=== PATIENT | female | born 1960 | race Caucasian/White ===

== ENCOUNTER 2024-07-07 13:00 | Outpatient (AMB) | payer MEDICARE, SELFPAY ==
--- NOTE | 2024-07-07 13:10 | MHC.PC.OV ---
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 Care Intake Note: New patient visit Director Non Profit Required: No Allergies Sulfa (Sulfonamide Antibiotics) Allergy (Mild, Verified 07/07/24 13:14) mouth swelling Tobacco use date assessed: 07/07/24 Fall risk assessment: No Falls in past year Last assessed Fall Risk: 07/07/24 Dental Screening Dental Screen Date: 07/07/24 Did you have a dental visit in the last 12 months?: Yes Was dental information given to patient?: Patient has dentist HPI HPI Comments History of Present Illness Details The patient is a 64 year old female with a past medical history of CAD, hyperlipidemia, GERD, OA, FREDDY presenting for follow up. Transfer from [facility] CV: Metoprolol, repatha. Follows with Dr Duran-upcoming visit. There was evidence of CAD per stress echo. Intolerant of crestor, pravastatin, lipitor. She is exercising multiple times per week and eating a low calorie diet but is frustrated by weight gain and inability to use it. She does have mild FREDDY diagnosed in 2021 OA: right shoulder, right hip, low back pain. [facility] Colonoscopy was 2023 Mammo scheduled for september Follows with supervisor brine-Dr Wall-sees in August ROS see HPI PHYSICAL EXAM: GENERAL: Alert and oriented x 3. NAD EYES: EOMI. Anicteric. HENT: Moist mucous membranes. No scleral icterus. No cervical lymphadenopathy. LUNGS: Clear to auscultation bilaterally. CARDIOVASCULAR: Regular rate and rhythm. No murmur. No JVD. ABDOMEN: Soft, non-tender +bs EXTREMITIES: No edema. Non-tender. SKIN: No rashes or lesions. Warm. NEUROLOGIC: No focal neurological deficits. CN II-XII grossly intact PSYCHIATRIC: Cooperative. 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 1. Little interest or pleasure in doing things: not at all 2. Feeling down, depressed, or hopeless: not at all 3. Trouble falling or staying asleep, or sleeping too much: several days 4. Feeling tired or having little energy: several days 5. Poor appetite or overeating: several days 6. Feeling bad about yourself - or that you are a failure or have let yourself or your family down: not at all 7. Trouble concentrating on things, such as reading the newspaper or watching television: several days 8. Moving or speaking so slowly that other people could have noticed. Or the opposite - being so fidgety or restless that you have been moving around a lot more than usual: not at all 9. Thoughts that you would be better off or of hurting yourself in some way: not at all Total score: 4 Depression Screening Interpretation: Negative Depression Screening Done: Yes 66960 - PHQ-9 Billing: Yes Source: Developed by Drs. Eric Garcia, Luz Maria Azar, Alcon Winchester and colleagues, with an educational aly from [employer]. Thrive Questionnaire Date Thrive assessed: 07/02/24 I am a: Patient What is your living situation today?: I have a steady place to live Within the past 12 months, did the food you bought not last and you didn't have the money to get more?: Never true Within the past 12 months, did you worry whether your food would run out before you got money to buy more?: Never true Do you have trouble paying for medicines?: No Do you have trouble getting transportation to medical appointments?: No Do you have trouble paying your heating and electricity bill?: No Do you have trouble taking care of your child, family member or friend?: No Do you have trouble with day-to-day activities such as bathing, preparing meals, shopping, managing finances, etc.?: No Are you currently unemployed and looking for a job?: No Are you interested in more education?: No Please select the resources that you would like help with: None Currently or been in a relationship where the following occur: No concerns reported THRIVE Score: 0 AUDIT C Alcohol Use Questionnaire (AUDIT-C) 1. How often do you have a drink containing alcohol?: 2-3 times a week 2. How many drinks containing alcohol do you have on a typical day when you are drinking?: 3 or 4 3. How often do you have six or more drinks on one occasion?: Less than monthly Total Score: 5 XOCHITL-7 AMB Questionnaire XOCHITL-7 Feeling nervous, anxious, or on edge: 0 = Not at all Not being able to stop or control worryin = Not at all Worrying too much about different things: 0 = Not at all Trouble relaxin = Not at all Being so restless that it is hard to sit still: 0 = Not at all Becoming easily annoyed or irritable: 0 = Not at all Feeling afraid as if something awful might happen: 0 = Not at all Total XOCHITL-7 score (0-4 normal; 5-9 mild; 10-14 moderate; 15-21 severe): 0 Source: Developed by Drs. Eric Garcia, Luz Maria Azar, Alcon Winchester and colleagues, with an educational aly from [employer]. Physical exam (Primary Care) PHQ-9: PHQ-9 Score PHQ-9: Total score 4 07/07/24 13:13 Depression Screening Interpretation: Negative Thrive Assessment: Date of Thrive Assessment Date Thrive assessed 07/02/24 07/07/24 13:13 Currently or been in a relationship where the following occur: No concerns reported Coding Level of Care Code Est Pt Level 4 (91255) Complex EM visit Add On G2211 Diagnoses Coronary artery disease without angina pectoris, unspecified vessel or lesion type, unspecified whether [place] or transplanted heart I25.10 Coronary Disease-Associated Artery/Lesion type: unspecified vessel or lesion type [place] vs. transplanted heart: unspecified whether [place] or transplanted heart Associated angina: without angina Primary hypertension I10 Hypertension type: primary hypertension FREDDY (obstructive sleep apnea) G47.33 Overweight E66.3 Additional Codes PHQ-9 - 85113 - PHQ-9 Billing: Yes ([id number]) Assessment & Plan Assessment & Plan (1) CAD (coronary artery disease): Code(s): I25.10 - Atherosclerotic heart disease of [place] coronary artery without angina pectoris Category: Medical Qualifiers: Coronary Disease-Associated Artery/Lesion type: unspecified vessel or lesion type [place] vs. transplanted heart: unspecified whether [place] or transplanted heart Associated angina: without angina Qualified Code(s): I25.10 - Atherosclerotic heart disease of [place] coronary artery without angina pectoris (2) Hypertension: Code(s): I10 - Essential (primary) hypertension Category: Medical Qualifiers: Hypertension type: primary hypertension Qualified Code(s): I10 - Essential (primary) hypertension (3) FREDDY (obstructive sleep apnea): Code(s): G47.33 - Obstructive sleep apnea (adult) (pediatric) Category: Medical (4) Overweight: Code(s): E66.3 - Overweight Category: Medical Plan 64 year old to reestablish care Interval history reviewed Due for colonoscopy in 2023-referral placed Labs ordered and printed-she will be going to [facility] Weight gain, overweight, FREDDY, hld, CAD-GLP ordered Orders: Orders Comprehensive Met. Panel Today I25.10 - Atherosclerotic heart disease of [place] coronary artery without angina pectoris, Z13.0 - Encounter for screening for diseases of the blood and blood-forming organs and certain disorders involving the immune mechanism, Z13.228 - Encounter for screening for other metabolic disorders TSH reflex Free T4 Today I25.10 - Atherosclerotic heart disease of [place] coronary artery without angina pectoris, Z13.0 - Encounter for screening for diseases of the blood and blood-forming organs and certain disorders involving the immune mechanism, Z13.228 - Encounter for screening for other metabolic disorders Complete Blood Count Auto Diff Today I25.10 - Atherosclerotic heart disease of [place] coronary artery without angina pectoris, Z13.0 - Encounter for screening for diseases of the blood and blood-forming organs and certain disorders involving the immune mechanism, Z13.228 - Encounter for screening for other metabolic disorders Hemoglobin A1c Today I25.10 - Atherosclerotic heart disease of [place] coronary artery without angina pectoris, Z13.0 - Encounter for screening for diseases of the blood and blood-forming organs and certain disorders involving the immune mechanism, Z13.228 - Encounter for screening for other metabolic disorders Referrals Gastroenterology Referral I25.10 - Atherosclerotic heart disease of [place] coronary artery without angina pectoris, Z12.11 - Encounter for screening for malignant neoplasm of colon, Z86.79 - Personal history of other diseases of the circulatory system Medications: New lorazepam 1 mg PO DAILY PRN 30 tabs 1RF anxiety Zepbound (tirzepatide (weight loss)) for 4 weeks 2.5 mg (0.5 mL) subcut QWEEK 2 mL 1RF NS E66.3 - Overweight, G47.33 - Obstructive sleep apnea (adult) (pediatric), I10 - Essential (primary) hypertension, I25.10 - Atherosclerotic heart disease of [place] coronary artery without angina pectoris ondansetron HCl may pay out of pocket 4 mg PO Q8H PRN 30 tabs 0RF nausea and vomiting
[2024-07-07 13:19] VITALS: BP 120/84; PULSE 59; RESP 14; O2SAT 95; BMI 28.5
--- OUTSIDE RECORDS SUMMARY | 2024-07-07 14:05 | XMS_ITS | Patient Health Record ---
Author Organization [facility] Address [address] [place] [address] Care Team Providers Care Medical Technologist Microbiology Name Role Phone THONY DORADO MD Primary Care Provider Zonia Thomas [phone] Allergies Allergen (clinical drug ingredient) Drug/Non Drug Allergy documented on EMR Reaction Allergy Type Onset Date Status Substance with sulfonamide structure and antibacterial mechanism of action (substance) SULFA (uncoded) SWELLING OF LIPS Allergy Active Results Component Value Reference Range Notes PDF Report Reviewed date:09/10/2023 08:04:57 AM Interpretation: Performing Lab:[facility], [address] [place] [address], Phone - [phone], Director - MDMoore Notes/Report: No. of containers..01 ThinPrep Vial Other..............Post Menopausal Dates / Results....03/05/18 NIL, Neg HPV Clinical Information:Vaginal/Cervical, LMP: Men o [id number] No Culture 30 Plus Reviewed date:09/10/2023 08:05:51 AM Interpretation: Performing Lab:[facility], [address] [place] [address], Phone - [phone], Director - MDMoore Notes/Report: Clinical Information:Vaginal/Cervical, LMP: Men o [id number] Dates / Results....03/05/18 NIL, Neg HPV Other..............Post Menopausal No. of containers..01 ThinPrep Vial DIAGNOSIS: EPITHELIAL CELL ABNORMALITY. ATYPICAL SQUAMOUS CELLS OF UNDETERMINED SIGNIFICANCE (ASC-US). Specimen adequacy: Satisfact ory for evaluation. No endocervical component is identified. Clinician provided ICD10: Z0 1.419 Performed by: Finesse Allan , Can Carrier (ASCP) Electronically signed by: Shira Hutchinson MD, Pathologist . . Pathologist provided ICD10: R87.610 Note: The Pap smear is a screening test designed to aid in the detection of premalignant and malignant conditions of the uterine cervix. It is not a diagnostic procedure and should not be used as the sole means of detecting cervical cancer. Both false-positive and false-negative reports do occur. . Test Methodology: This liquid based ThinPrep(R) pap test was screened with the use of an image guided system. HPV Aptima Negative Negative This nucleic acid amplification test detects fourteen high-risk HPV types (16,18,31,33,35,39,45,51,52,56, 58,59,66,68) without differentiation. HPV Genotype Reflex Criteria not met, HPV Genotype not performed. Reason For Referral No Information Medications Medication SIG (Take, Route, Frequency, Duration) Notes Start Date End Date Status Repatha 140 MG/ML Subcutaneous for 28 Days Active Metoprolol Succinate ER 25 MG Oral for 90 Days Active Aspirin Adult Low Dose 81 MG 1 tablet Orally Once a day for 30 day(s) 09/03/2023 Active Estradiol 10 MCG 1 _insert Vaginal TH RICE A WEEK for 90 days 09/03/2023 Active Immunizations Vaccine Route Administration Date Status Comme nts Td (adult) preservative free Unknown 03/05/2018 Adminis tered Social History Tobacco Use: Social History Observation Description Date Details (start date - stop date) Former Smoker NA - NA Tobacco use other than smoking: Question Answer Notes Are you an other tobacco user? No AUDIT-C (Standard) Question Answer Notes Did you have a drink contain ing alcohol in the past year? Yes How often did you have six o r more drinks on one occasion in the past year? Less than monthly (1 point) How many drinks did you have on a typical day when you were drinking in the past year? 1 or 2 drinks (0 point) How often did you have a dri nk containing alcohol in the past year? Daily or almost daily (4 points) Points 5 Interpretation Positive Tobacco Control (Standard) Question Answer Notes Tobacco use: Former smoker How long has it been since you last smoked? Grea ter than 10 years Problems Problem Type SNOMED Code ICD Code Onset Dates Problem Status W/U Status Risk Notes Problem Postmenopausal atrophic vaginitis (97310215) Postmenopausal atrophic vaginitis (N95.2) Active confirmed Problem Disorder of breast (67043000) Disorder of breast, unspecified (N64.9) Active confirmed Problem Menopause (412856184) Menopausal and female climacteric states (N95.1) Active confirmed Problem Postmenopausal atrophic vaginitis (62032946) Postmenopausal atrophic vaginitis (627.3) Active confirmed Diag Problem Gynecological examination normal (734803312004929) Routine gynecological examination (V72.31) Active confirmed Problem Screening for malignant neoplasm of colon (797833054) Special screening for malignant neoplasms, colon (V76.51) Active confirmed Major Vital Signs Temperature 97.4 degrees Fahrenheit 09/03/2023 Blood pressure diastolic 80 mm Hg 09/03/2023 Height 66 in 09/03/2023 Blood pressure systolic 112 mm Hg 09/03/2023 Weight 169 lbs 09/03/2023 BMI 27.27 kg/m2 09/03/2023 Encounters Encounter Location Date Provider Diagnosis [address] [place] [address] 09/03/2023 Zonia Wall Encounter for gynecological examination (general) (routine) with abnormal findings Z01.411 ; Encounter for screening mammogram for malignant neoplasm of breast Z12.31 ; Encounter for screening for osteoporosis Z13.820 ; Postmenopausal atrophic vaginitis N95.2 and Menopausal and female climacteric states N95.1 Assessments Encounter Date Diagnosis (ICD Code) Assessment Notes Treatment Notes Treatment Clinical Notes Section Notes 09/03/2023 Encounter for gynecological examination (general) (routine) with abnormal findings (ICD-10 - Z01.411) PAP TEST WITH HPV TYPING WAS OBTAINED. 09/03/2023 Encounter for screening mammogram for malignant neoplasm of breast (ICD-10 - Z12.31) REGULAR MAMMOGRAMS AND SBE'S WERE RECOMMENDED. 09/03/2023 Encounter for screening for osteoporosis (ICD-10 - Z13.820) BONE DENSITY WAS ORDERED. 09/03/2023 Postmenopausal atrophic vaginitis (ICD-10 - N95.2) DISCUSSED FINDINGS, DX AND TX OPTIONS. DISCUSSED BENEFITS AND RISKS OF INTRAVAGINAL ESTROGEN. PAT HAS NO CONTRAINDICATIONS AND ACCEPTS RISKS. RX AND INSTRUCTIONS FOR ESTRADIOL 10MCG TABS WERE GIVEN. ADVISED LUBRICANTS LIKE ALOE CADABRA. 09/03/2023 Menopausal and female climacteric states (ICD-10 - N95.1) DISCUSSED MENOPAUSE AND SYMPTOMS ASSOCIATED WITH THIS INCLUDING LOSS OF LIBIDO, INSOMNIA, HOT FLASHES. DISCUSSED NEW MEDICATION FOR HOT FLASHES, VEOZAH. BOOKLET WAS GIVEN, ITS BENEFITS AND RISKS WERE DISCUSSED. NEED FOR LIVER FUNCTION TESTS PRIOR TO AND AT 3, 6 AND 9 MONTHS AFTER STARTING THE MEDICATION WAS ALSO DISCUSSED. PAT WILL THINK ABOUT THIS OPTION. . Plan Of Treatment Pending Test Test Name Order Date Ultrasound : Breast, right 04/04/2023 Pap IG, Ct, rfx HPV all pth 04/13/2014 MAMMOGRAM, SCREENING 04/13/2014 MAMMOGRAM, SCREENING 09/03/2023 DIAGNOSTIC MAMMOGRAM, LEFT BREAST 2021 BONE DENSITY 09/03/2023 MM Digital Mammo Screening 09/03/2023 Gretel Uni Diag Digital Rt 04/04/2023 Left Breast Ultrasound Diagnostic 2021 Next Appt Details Provider Name:Zonia Ashely parker, 09/08/2024 08:20:00 AM, [address], [address], [place], [address], Insurance Providers Payer Name Payer Address Payer Phone Subscriber Number Group Number Insured Name Patient Relationship to Insured Coverage Start Date Coverage End Date MEDICARE [address] [place], [place] [id number] JOSÉ ANTONIO HUI Self - patient is the insured MEDEX [address] [place] [address] [phone] [id number] JOSÉ ANTONIO HUI Self - patient is the insured Medical (General) History Medical History History ICD Code Menopausal and female climacteric states N95.1 Postmenopausal atrophic vaginitis N95.2 Disorder of breast, unspecified N64.9 Hormone replacement therapy Z79.890 Other signs and symptoms in breast N64.5 9 Palpitations R00.2 Surgical History Surgery Date(Month/Year) Colonoscopy Dialation & Curettage Right Shoulder Surgery Tonsillectomy/Adenoidectomy [place] Teeth Extraction Hospitalization History Reason Date(Month/Year) See Surgical Hx 2 Vaginal Deliveries
--- OUTSIDE RECORDS SUMMARY | 2024-07-07 14:05 | XMS_ITS | Clinical Summary ---
Author Organization [facility] it Address [address] [place] [address] Care Team Providers Care Dietitian Helper Name Role Phone Sandra Dodd MD Primary Care Provider [phone] Allergies Active Allergy Reactions Criticality Noted Date Comments Aspartame Nausea And Vomiting 12/24/2008 Sulfa (Sulfonamide Antibiotics) Swelling High 04/11/2005 swelling of mouth anf lips Medications aspirin 81 mg EC tablet Take 1 Tablet by mouth daily. 2 Active azelastine (ASTELIN) 137 mcg (0.1 %) nasal spray daily as needed. 9 Active cholecalciferol (VITAMIN D-3) 125 mcg (5,000 unit) capsule Take by mouth daily. Active evolocumab (Repatha SureClick) 140 mg/mL pen injector injection Inject 140 mg into the skin every 14 days. 4 Active ibuprofen (ADVIL,MOTRIN) 200 mg tablet 1 TABLET EVERY 4 TO 6 HOURS NEEDED Active LORazepam (ATIVAN) 0.5 mg tablet Take 1 tablet by mouth 2 times daily as needed for Anxiety. 1 Active omega-3 acid ethyl esters (LOVAZA) 1 gram capsule Take 1 Capsule by mouth daily. Active TURMERIC ORAL Take 1,000 mg by mouth daily. Active ascorbate calcium-bioflavon oid (Araseli-C with Bioflavonoids) 500-200 mg tablet Take by mouth daily. Active coenzyme Q-10 200 mg capsule Take 1 Capsule by mouth daily. Active fexofenadine HCl (FEXOFENADINE ORAL) Active gluc/msm/C/boron/ manganes/prim (JOINT SUPPORT COMPLEX ORAL) Take by mouth daily. Active Repatha Syringe 140 mg/mL syringeIndication s:Coronary artery disease, unspecified vessel or lesion type, unspecified whether angina present, unspecified whether [place] or transplanted heart Inject 140 mg into the skin every 14 days. 6 mL 3 5 Active metoprolol succinate (TOPROL-XL) 25 mg 24 hr tablet TAKE 1 TABLET DAILY 90 tablet 3 5 Active Active Problems Problem Noted Date Diagnosed Date HLD (hyperlipidemia) 06/13/2021 Overview (02/28/2024): Last Assessment & Plan: The patient has a history of hyperlipidemia. She continues on Repatha given her history of significant myalgias and leg cramping on multiple statins in the past. She has been tolerating this well. Her last fasting lipid panel completed April 2023 showed significant improvement in her cholesterol levels. Her LDL was noted to be 72. She has been working on her diet and has been exercising. I have reviewed with the patient the importance of a heart healthy lifestyle which includes eating a low-fat low-salt diet, getting regular exercise, maintaining a healthy weight, not smoking, and following up with routine medical care. CAD (coronary artery disease) 06/13/2021 Overview (02/28/2024): Last Assessment & Plan: A stress echocardiogram was completed August 2019 which showed exercise-induced hypokinesis of the basal to mid inferior wall. The patient has presumed coronary artery disease given this abnormal stress echocardiogram. Medical therapy was advised. The patient is currently asymptomatic from a cardiac standpoint while on medical therapy with aspirin and metoprolol succinate. She denies exertional anginal symptoms. Sleep difficulties 01/15/2017 Gastroesophageal reflux disease 01/15/2017 Ectatic aorta (CMS/HCC V24) 01/15/2017 Overview (02/28/2024): Noted on CT 2015 3.8 cm dilated ascending aorta noted on CT 03/2017. Saw Vascular Dr. Fatimah Soto 04/2017 Pulmonary nodule 12/21/2016 Nonallergic rhinitis 12/12/2015 Tinnitus 12/24/2008 Recurrent sinus infections 12/24/2008 Immunizations Name Administration Dates Next Due Influenza trivalent, with pr eservative (Fluzone; Afluria) 6mo and older 11/19/2017,11/20/2016,11/30/2015,12/07,11/17/2013,12/15/2012,11/18/2009 Pneumococcal polysaccharide 23 valent (Pneumovax 23) 2yo and older 11/30/2015 Td, Unspecified 06/05/2002 Tdap Tetanus diptheria acell ular pertussis (Boostrix; Adacel) 7yo and older 02/02/2013 Zoster recombinant (Shingrix ) 19yo and older 10/19/2020 Surgical History Surgery Date Site/Laterality Comments COLONOSCOPY 2002 PROCEDURE: HISTORICAL COLONOSCOPY; COMMENT: nl 08/20 OTHER SURGICAL HISTORY 1999 Right PROCEDURE: CO CAPSULORRHAPHY GLENOHUMERAL JT PST W/WO BONE BLK; COMMENT: NEOS CERVICAL BIOPSY W/ LOOP ELEC TRODE EXCISION PROCEDURE: HISTORICAL CONE BIOPSY; COMMENT: in her 30s TONSILLECTOMY age 4 PROCEDURE: HISTORICAL TONSILLECTOMY; COMMENT: Adnoidectomy UPPER GASTROINTESTINAL ENDOSCOPY 2002 PROCEDURE: UPPER GI ENDOSCOPY/EXAM; COMMENT: Normal 08/20 OTHER SURGICAL HISTORY PROCEDURE: CO DILATION & CURETTAGE DX&/THER NONOBSTETRIC COLONOSCOPY 2013 PROCEDURE: CO COLONOSCOPY FLX DX W/COLLJ SPEC WHEN PFRMD; COMMENT: normal Medical History Medical History Date Comments Palpitations DX:Palpitations; COMMENT: mild PVC Mitral valve disorders(424.0) DX :Mitral valve disorders(424.0); COMMENT: Mild(CHART THINNED - NO ECHO IN CHART) Family History Medical History Relation Name Comments Pancreatic cancer Father Heart attack Paternal Grandfather Other: CAD Paternal Grandfather Other: KIDNEY STONES Paternal Grandfather Melanoma Sister 1 Relation Name Status Comments Brother 1 Alive Brother 2 Alive recovered ETOH Brother 3 Alive Daughter Alive Father (Age 64 YRS) PANCRE ATIC CA Maternal Grandfather heart d isease Mother Alive HTN,OSTEOPOROSI S Paternal Grandfather (Age 70'S) CAD/GA Paternal Grandmother (Age 97 YRS ) Sister 1 Alive 2 melanomas Sister 2 Alive Sister 3 Alive Son Alive Social History Tobacco Use Types Packs/Day Years Used Date Smoking Tobacco: Former Cigarettes Q uit: 02/19/1984 Smokeless Tobacco: Never Alcohol Use Standard Drinks/Week Comments Yes 50 (1 standard drink = 0.6 oz pu re alcohol) Comments Unknown Sex and Gender Information Value Date Recorded Sex Assigned at Not on file Legal Sex Female 12:28 PM EST Gender Identity Not on file Sexual Orientation Not on file Obstetrics History Last Filed Vital Signs Vital Sign Reading Time Taken Comments Blood Pressure 122/80 05/10/2023 7:41 AM EDT Sitting L Arm Pulse 65 05/10/2023 7:41 AM EDT Temperature - - Respiratory Rate - - Oxygen Saturation - - Inhaled Oxygen Concentration - - Weight 78.3 kg (172 lb 9.6 oz) 05/10/2023 7:41 AM EDT Height 165.1 cm (5' 5 ) 05/10/2023 7:41 AM EDT Body Mass Index 28.72 05/10/2023 7:41 AM EDT Plan of Treatment Upcoming Encounters Date Type Department Care Team (Late st Contact Info) Description 07/14/2024 8:20 AM EDT Office Visit [facility] [address] [place] [address] Roger-Chandrakant Macias MD [address] [place] [address] [address] [place] [address] 10/06/2024 11:10 AM EDT Appointment Radiology Department [address] [address] Health Maintenance Due Date Last Done Comments Pneumococcal Vaccine: 50+ Years (2 of 2 - PCV) 11/29/2016 11/30/2015 Zoster Vaccines (2 of 2) 12/14/2020 10/19/2020 Colorectal Cancer Screening: Colonoscopy 01/27/2022 Depression Screening 01/27/2022 Medicare Annual Wellness Visit 01/27/2022 Osteoporosis Screening (Bone Density Screening) 01/27/2022 Social Influencers of Health Screening 01/27/2022 Hypertension/CHF/CAD Annual BMP Blood Test 10/04/2022 10/04/2021 DTaP,Tdap,and Td Vaccines (3 - Td or Tdap) 02/02/2023 02/02/2013, 06/05/2002 Falls Risk Assessment 2023 COVID-19 Vaccine ( season) 2023 04/23/2020, 04/02/2020 Influenza Vaccine (Season Ended) 2024 11/19/2017, 11/20/2016, 11/30/2015, Additional history exists Breast Cancer Screening 04/28/2025 04/29/19 24, 04/03/2023, 04/02/2022, Additional history exists Cholesterol Screening (Lipid Panel) 10/04/2026 10/04/2021 RSV Immunization Adult Patients (1 - 1-dose 75+ series) 2033 Hepatitis C Screening Completed 11/16/2014 HIB Vaccines Aged Out No longer eligi ble based on patient's age to complete this topic HPV Vaccines Aged Out No longer eligi ble based on patient's age to complete this topic Hepatitis A Vaccines Aged Out No long er eligible based on patient's age to complete this topic Hepatitis B Vaccines Aged Out No long er eligible based on patient's age to complete this topic IPV Vaccines Aged Out No longer eligi ble based on patient's age to complete this topic MMR Vaccines Aged Out No longer eligi ble based on patient's age to complete this topic Meningococcal ACWY Vaccine Aged Out N o longer eligible based on patient's age to complete this topic Meningococcal B Vaccine Aged Out No l onger eligible based on patient's age to complete this topic RSV Immunization Patients Under 20 months Aged Out No longer eligible based on patient's age to complete this topic Varicella Vaccines Aged Out No longer eligible based on patient's age to complete this topic Procedures Procedure Name Priority Date/Time Associated Diagnosis Comments DIAGNOSTIC MAMMOGRAPHY WITH CAD UNILATERAL Routine 04/29/2023 9:32 AM EDT Other abnormal and inconclusive findings on diagnostic imaging of breast ANNUAL BMP BLOOD TEST Routine 10/04/2021 LIPID PANEL Routine 10/04/2021 HEPATITIS C SCREENING Routine 11/16/2014 from Last 3 Months or Most Recently Relevant to Health Maintenance Results * DIAGNOSTIC MAMMOGRAPHY WITH CAD UNILATERAL (04/29/2023 9:32 AM EDT) Anatomical Region Laterality Modality Mammography 04/04/2023 3:14 PM EST Narrative 04/29/2023 9:48 AM EDT This is a summary report. The complete report is available in the patient's medical record. If you cannot access the medical record, please contact the sending organization for a detailed fax or copy. Exam: Unilateral right digital diagnostic mammogram and right breast ultrasound. History: Call back Findings: Patient is recalled from a screening mammogram performed 04/03/2023 for additional imaging on the right. 90 ML and spot compression MLO and CC views were performed with tomosynthesis. The asymmetry in the upper breast does not persist on the additional views. ??No mass or architectural distortion is apparent. ??Parenchymal pattern is similar to prior exams. The asymmetry in the upper breast localizes to the outer breast on tomosynthesis. ??Targeted sonography subsequently performed in the upper outer quadrant without a solid or cystic lesion identified. Impression: No suspicious finding on callback imaging. ??Routine annual screening mammography recommended. BI-RADS 1-negative Procedure Note Jess To MD - 10/07/2023 This is a summary report. The complete report is available in thepatient's medical record. If you cannot access the medical record, pleasecontact the sending organization for a detailed fax or copy. Exam: Unilateral right digital diagnostic mammogram and right breastultrasound. History: Call back Findings: Patient is recalled from a screening mammogram performed 04/03/2023 foradditional imaging on the right. 90 ML and spot compression MLO and CC views were performed withtomosynthesis. The asymmetry in the upper breast does not persist on theadditional views. No mass or architectural distortion is apparent.Parenchymal pattern is similar to prior exams. The asymmetry in the upper breast localizes to the outer breast ontomosynthesis. Targeted sonography subsequently performed in the upperouter quadrant without a solid or cystic lesion identified. Impression: No suspicious finding on callback imaging. Routine annual screeningmammography recommended. BI-RADS 1-negative us Zonia Wall MD IMG BI PROCEDURES Final Re sult * Hm Annual BMP Blood Test (10/04/2021) Pathologist [facility] Annual BMP Blood Test abstracted Historical Provider HEALTH MAINTENANCE Final Result * (ABNORMAL) Lipid panel (10/04/2021) [facility] LDL/HDL Ratio 3 0 - 4 Triglycerides 119 0 - 150 mg/dL Cholesterol 226(A) 0 - 200 mg/dL HDL 75 >=40 mg/dL LDL Cholesterol 128(A) 0 - 100 mg/dL Blood Venous blood specimen / Unknown Historical Provider LAB BLOOD ORDERABLES Mary Kate l Result * Hepatitis C Screening (11/16/2014) [facility] Hepatitis C Screening abstracted [facility] Provider HEALTH MAINTENANCE Final Result from Last 3 Months or Most Recently Relevant to Health Maintenance Insurance [facility]ICARE [facility] Care Teams Dietitian Helper Relationship Specialty Start Date End Date Sandra Dodd MD [address] [place] [address] PCP - General Internal Medicine 06/29/24
== END 2024-07-07 13:51 | disposition home or self-care (01) ==
LOC: HO.HMCFM 13:01
PROVIDERS: PCP Internal Medicine; Visit Provider Internal Medicine
DX: I25.10 Atherosclerotic heart disease of native coronary artery without angina pectoris (principal); I10 Essential (primary) hypertension; G47.33 Obstructive sleep apnea (adult) (pediatric); E66.3 Overweight

== ENCOUNTER → 2024-07-07 13:00 | Outpatient (BNVA) | payer MEDICARE, SELFPAY | PROVIDERS: PCP Internal Medicine; Visit Provider Internal Medicine | DX: I25.10 Atherosclerotic heart disease of native coronary artery without angina pectoris (principal); I10 Essential (primary) hypertension; G47.33 Obstructive sleep apnea (adult) (pediatric); E66.3 Overweight; E78.5 Hyperlipidemia, unspecified; K21.9 Gastro-esophageal reflux disease without esophagitis; M19.011 Primary osteoarthritis, right shoulder; M16.11 Unilateral primary osteoarthritis, right hip; M54.50 Low back pain, unspecified; Z79.899 Other long term (current) drug therapy | CPT/HCPCS: 96127; 99212 ==

== ENCOUNTER 2024-09-08 11:11 | Outpatient (AMB) | payer MEDICARE, SELFPAY ==
--- NOTE | 2024-09-08 11:19 | MHC.OFFVIS ---
Vital Signs 09/08/24 11:21 Height 5 ft 5 in Weight 165 lb BMI 27.5 BP 140/80 H Blood Pressure Location Lt brachial Position Sitting Pulse 60 Pulse Oximetry (%) 98 Oxygen Delivery Method Room Air Intake Visit Reasons: colo screening Intake Note: Patient new consult for pre Colonoscopy screening. Patient denies any GI issues for today visit. Textile Broker Required: No Accompanied by: Self / Same As Patient Allergies Sulfa (Sulfonamide Antibiotics) Allergy (Mild, Verified 07/07/24 13:14) mouth swelling Medication List - Last Reconciled 09/08/24 by Zoe Marr CNP aspirin 81 mg PO DAILY bisacodyl 5 mg PO ONCE 1 day calcium carbonate 500 mg PO DAILY cetirizine (Zyrtec) 10 mg PO DAILY PRN [milagros c 1000 PO] evolocumab (Repatha Syringe) mg subcut fish oil-dha-epa PO DAILY [glucasamine with MSM PO] loratadine (Claritin) 10 mg PO DAILY lorazepam 1 mg PO DAILY PRN metoprolol succinate ER 25 mg PO DAILY ondansetron HCl 4 mg PO Q8H PRN polyethylene glycol 3350 (Miralax) 238 grams PO ONCE [probiotics PO] Zepbound (tirzepatide (weight loss)) 2.5 mg (0.5 mL) subcut QWEEK 4 weeks NS HPI HPI colo screening: Details: Patient is a 64-year-old female with PMH of hypertension, CAD, FREDDY and overweight. Referred by PCP for pre colonoscopy screening. This will be [address]oscopy. Her last was in 2013 through [facility] and reported as normal. The patient reports regular bowel movements and described occasional constipation or diarrhea, believed to be diet-related and manageable. No blood in stools, abdominal pain, nausea, or vomiting is reported. The patient mentions some stomach upset following the first dose of Zepbound last Saturday, which resolved within hours. The observed weight fluctuation from 171 lbs in June to the current weight of 165 lbs is attributed to working out and medication-related effects. Social hx: - Alcohol use (vodka lemonade) 2-3 times/week, typically on weekends. - Recreational use of THC-containing sleep gummies once a week. -former smoker, cessation 40 years ago - family hx as below -denies personal hx of CA -tolerated anesthesia in the past without difficulty. 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 Current occupational exposures/hazards: No Cognitive needs: No Hearing needs: Yes (bilateral hearing aid) Vision needs: Yes (glasses/contacts) Review of Systems Const Reports as per HPI ENT Reports as per HPI Card Reports as per HPI Resp Reports as per HPI GI Reports as per HPI Reports as per HPI Physical Exam Vital Signs: Last Vital Signs Pulse 60 09/08/24 11:21 BP 140/80 H 09/08/24 11:21 Pulse Ox 98 09/08/24 11:21 Oxygen Delivery Method Room Air 09/08/24 11:21 BMI result Body Mass Index 27.5 Const General: healthy appearing, no acute distress and well developed Nutritional Appearance: average body habitus Orientation/consciousness: patient oriented x3 HEENT Head: Yes normal to inspection, Yes normocephalic and Yes atraumatic Face and sinus: Yes normal facial exam Eyes General: appearance normal, both eyes and all related structures Neck Neck: Yes normal visual inspection Resp Effort & Inspection: normal respiratory effort, able to speak in complete sentences, no tracheal deviation and symmetric chest movement Cardio Jugular venous distension: no JVD Neuro General: patient oriented x3 Gait exam (Neuro): Normal gait present Psych Appearance: grossly normal Mental Status: mental status grossly normal Speech and movement: Normal speech and movement present Affect: normal affect Attitude: cooperative Thought process: Normal thought process present Thought content: Normal thought content present Insight: Good insight present (Psych) Judgement: Good judgement present (Psych) Assessment & Plan Assessment & Plan (1) Screening for colon cancer: Code(s): Z12.11 - Encounter for screening for malignant neoplasm of colon Category: Medical Plan: Due for routine colonoscopy screening. No alarm features. Medications: -prescriptions for laxative tablets and MiraLax sent to pharmacy; instructions for Gatorade purchase and clear liquid diet given. - understands weight loss medication and ASA will need to be held days prior to procedure. Nurse to review med holds per protocol. Patient educated on scheduling process, procedure preparation, including avoiding certain foods and ensuring clear liquid intake Advised on necessity for ride post-procedure due to sedation. (2) Overweight: Code(s): E66.3 - Overweight Category: Medical Plan: Weight loss attributed to increased activity and Zepbound; Zepbound known to cause GI side effects, including constipation. Medications: Continue Zepbound as prescribed, but hold 7 days prior to colonoscopy. Lifestyle Modifications: Emphasize high-fiber diet, adequate water intake, and regular exercise to counteract constipation risk from Zepbound. Monitor for persistent or severe GI symptoms. Follow-Up: Reassess bowel habits and weight at next PCP visit; monitor for adverse effects of Zepbound. Plan Follow-up after colonoscopy if warranted or sooner as needed Time: I spent a total of 20 minutes on the date of encounter which includes: Preparing to see the patient (reviewed previous documentation, test results and medical history) Performing a medically appropriate exam and/or evaluation Ordering medications, tests, and procedures Documenting clinical information in the health record Medications: New bisacodyl Take four tablets once for 1 day per colonoscopy instructions 5 mg PO ONCE 4 tabs 0RF 1 day polyethylene glycol 3350 (Miralax) per colonoscopy prep instructions 238 grams PO ONCE 238 grams 0RF Coding Level of Care Code New Pt New Pt Level 2 (94814) Patient Type New Diagnoses Screening for colon cancer Z12.11 Overweight E66.3
[2024-09-08 11:21] VITALS: BP 140/80; PULSE 60; O2SAT 98; BMI 27.5
--- OUTSIDE RECORDS SUMMARY | 2024-09-08 12:26 | XMS_ITS | Patient Health Record ---
Author Organization [facility] Address [address] [place] [address] Care Team Providers Care Binding Cutter Name Role Phone THONY DORADO MD Primary Care Provider Zonia Thomas [phone] Allergies Allergen (clinical drug ingredient) Drug/Non Drug Allergy documented on EMR Reaction Allergy Type Onset Date Status Substance with sulfonamide structure and antibacterial mechanism of action (substance) SULFA (uncoded) SWELLING OF LIPS Allergy Active Reason For Referral No Information Medications Medication SIG (Take, Route, Frequency, Duration) Notes Start Date End Date Status Estradiol 10 MCG 1 _insert Vaginal TH RICE A WEEK; Duration: 90 days 09/03/2023 Not-Taking Aspirin Adult Low Dose 81 MG 1 tablet Orally Once a day; Duration: 30 day(s) 09/03/2023 Active Metoprolol Succinate ER 25 MG Oral; Duration: 90 Days Acti ve Repatha 140 MG/ML Subcutaneous; Durati on: 28 Days Active Immunizations Vaccine Route Administration Date Status [...] Status Risk Notes Problem Postmenopausal atrophic vaginitis (71235812) Postmenopausal atrophic vaginitis (N95.2) Active confirmed Problem Disorder of breast (29752860) Disorder of breast, unspecified (N64.9) Active confirmed Problem Menopause (394290030) Menopausal and female climacteric states (N95.1) Active confirmed Problem Postmenopausal atrophic vaginitis (39999486) Postmenopausal atrophic vaginitis (627.3) Active confirmed Diag Problem Gynecological examination normal (400960953490531) Routine gynecological examination (V72.31) Active confirmed Problem Screening for malignant neoplasm of colon (760947029) Special screening for malignant neoplasms, colon (V76.51) Active confirmed Major Vital Signs Temperature 97.3 degrees Fahrenheit 09/08/2024 Blood pressure diastolic 82 mm Hg 09/08/2024 Height 66 in 09/08/2024 Blood pressure systolic 122 mm Hg 09/08/2024 Weight 165 lbs 09/08/2024 BMI 26.63 kg/m2 09/08/2024 Encounters Encounter Location Date Provider Diagnosis [address] [place] [address] 09/08/2024 Zonia Wall Encounter for gynecological examination (general) (routine) without abnormal findings Z01.419 ; Encounter for screening mammogram for malignant neoplasm of breast Z12.31 and Encounter for screening for osteoporosis Z13.820 Assessments Encounter Date Diagnosis (ICD Code) Assessment Notes Treatment Notes Treatment Clinical Notes Section Notes 09/08/2024 Encounter for gynecological examination (general) (routine) without abnormal findings (ICD-10 - Z01.419) NO PAP TEST, DUE IN 2026. 09/08/2024 Encounter for screening mammogram for malignant neoplasm of breast (ICD-10 - Z12.31) REGULAR MAMMOGRAMS AND SBE'S WERE RECOMMENDED. 09/08/2024 Encounter for screening for osteoporosis (ICD-10 - Z13.820) BONE DENSITY WAS ORDERED. ADVISED ADEQUATE CALCIUM AND VIT D. WEIGHT BEARING EXERCISES. Plan Of Treatment Pending Test Test Name Order Date Ultrasound : Breast, right 04/04/2023 Pap IG, Ct, rfx HPV all pth 04/13/2014 MAMMOGRAM, SCREENING 04/13/2014 MAMMOGRAM, SCREENING 09/03/2023 DIAGNOSTIC MAMMOGRAM, LEFT BREAST 2021 BONE DENSITY 09/08/2024 BONE DENSITY 09/03/2023 MM Digital Mammo Screening 09/03/2023 MM Digital Mammo Screening 09/08/2024 Gretel Uni Diag Digital Rt 04/04/2023 Left Breast Ultrasound Diagnostic 2021 Next Appt Details Provider Name:Zonia parker, 09/16/2025 08:20:00 AM, [address], [address], [place], [address], Insurance Providers Payer Name Payer Address Payer Phone Subscriber Number Group Number Insured Name Patient Relationship to Insured Coverage Start Date Coverage End Date MEDICARE [address] [place], [place] [id number] [phone] [id number] JOSÉ ANTONIO HUI Self - patient is the insured 4 MEDEX [address] [place] [address] [phone] [id number] JOSÉ ANTONIO HUI Self - patient is the insured 4 Medical (General) History Medical History History ICD Code Menopausal and female climacteric states N95.1 Postmenopausal atrophic vaginitis N95.2 Disorder of breast, unspecified N64.9 Hormone replacement therapy Z79.890 Other signs and symptoms in breast N64.5 9 Palpitations R00.2 Surgical History Surgery Date(Month/Year) Colonoscopy Dialation & Curettage Right Shoulder Surgery Tonsillectomy/Adenoidectomy [facility] Teeth Extraction Hospitalization History Reason Date(Month/Year) See Surgical Hx 2 Vaginal Deliveries
--- OUTSIDE RECORDS SUMMARY | 2024-09-08 12:26 | XMS_ITS | Clinical Summary ---
Author Organization [facility] [employer] Address [address] [place] [address] Phone Care Team Providers Care Plasterer Foreman Name Role Phone Sandra Dodd MD Primary Care Provider [phone] Allergies Active Allergy Reactions Criticality Noted Date Comments Aspartame Nausea And Vomiting 12/24/2008 Sulfa (Sulfonamide Antibiotics) Swelling High 04/11/2005 swelling of mouth anf lips Medications aspirin 81 mg EC tablet Take 1 Tablet by mouth daily. 06/13/2021 Active azelastine (ASTELIN) 137 mcg (0.1 %) nasal spray daily as needed. 03/24/2018 Active cholecalciferol (VITAMIN D-3) 125 mcg (5,000 unit) capsule Take by mouth daily. Active evolocumab (Repatha SureClick) 140 mg/mL pen injector injection Inject 140 mg into the skin every 14 days. 03/26/2023 Active ibuprofen (ADVIL,MOTRIN) 200 mg tablet 1 TABLET EVERY 4 TO 6 HOURS NEEDED Active LORazepam (ATIVAN) 0.5 mg tablet Take 1 tablet by mouth 2 times daily as needed for Anxiety. 10/18/2020 Active omega-3 acid ethyl esters (LOVAZA) 1 gram capsule Take 1 Capsule by mouth daily. Active ascorbate calcium-bioflav onoid (Araseli-C with Bioflavonoids) 500-200 mg tablet Take by mouth daily. Active coenzyme Q-10 200 mg capsule Take 1 Capsule by mouth daily. Active fexofenadine HCl (FEXOFENADINE ORAL) Active gluc/msm/C/boro n/manganes/prim (JOINT SUPPORT COMPLEX ORAL) Take by mouth daily. Active metoprolol succinate (TOPROL-XL) 25 mg 24 hr tablet TAKE 1 TABLET DAILY 90 tablet 3 04/13/2024 Active calcium carbonate 1,500 mg (600 mg elemental calcium) tablet Take 1 tablet (1,500 mg total) by mouth. Active Active Problems Problem Noted Date Diagnosed Date Abnormal EKG 07/14/2024 Assessment & Plan (07/14/2024 8:52 AM EDT): HLD (hyperlipidemia) 06/13/2021 Overview (02/28/2024): Last Assessment [...] and following up with routine medical care. Assessment & Plan (07/14/2024 8:52 AM EDT): The patient has a history of hyperlipidemia. The patient is currently on Repatha 140 mg subcutaneously every 2 weeks we will order a new lipid panel to evaluate the patient's current lipid control and determine if any adjustment are needed in the lipid lowering therapy. Orders: Lipid panel with reflex to direct LDL; Future Basic metabolic panel; Future Coronary artery disease invo lving shoalwater coronary artery of shoalwater heart with angina pectoris ([facility] V24) 06/13/2021 Overview (02/28/2024): Last Assessment & Plan: [...] metoprolol succinate. She denies exertional anginal symptoms. Assessment & Plan (07/14/2024 8:52 AM EDT): The patient has a history of presumed coronary artery disease on the basis of a prior abnormal stress echocardiogram. Specifically, the patient underwent a stress echocardiogram in August 2019 that showed a small area of ischemia in the basal to mid inferior wall. Given it was a small area of ischemia (low risk findings) the patient was treated with medical therapy by initiating aspirin, Toprol, and Repatha. Treatment plan is consistent with the [facility] chronic coronary artery disease guidelines. With this medical regimen, the patient has remained asymptomatic until now. However, on today's visit, the patient states that she feels a slight shortness of breath sensation when she goes up more than 4 flights of stairs. Interestingly, she does not feel any shortness of breath with 3 flights of stairs or less. Also, she does not feel any shortness of breath when she walks in the [place]. Of note, the patient does not have any symptoms of chest discomfort. She is compliant with her medical therapy with aspirin, Toprol, and Repatha. On today's visit, her EKG does show evidence of a nonspecific T wave abnormality in the inferolateral leads which is new when compared to her prior EKG from April 2023. Given the scenario, we will proceed with further evaluation of her underlying coronary artery disease. Will proceed with a cardiac CT scan to rule out any significant obstructive coronary artery disease or high risk coronary artery disease. Will also order an echocardiogram to rule out any underlying structural heart disease that may be contributing to her new EKG findings. The patient will continue her current medical therapy in the meantime. The patient was instructed to avoid any strenuous physical activities until her cardiac evaluation is complete. 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 Saw Vascular Dr. Fatimah Soto 04/2017 Encounters Date Type Department Care Team Description 08/14/2024 7:00 AM EDT Ancillary Procedure [facility] [address] [place] [address] Coronary artery disease involving shoalwater coronary artery of shoalwater heart with angina pectoris ([facility] V24) 07/22/2024 Telephone [facility] [address] [place] [address] Destiney Sutherland MD Appointment (Coronary CTA) 07/14/2024 8:20 AM EDT Office Visit [facility] [address] [place] [address] Destiney Sutherland MD Coronary artery disease involving shoalwater coronary artery of shoalwater heart with angina pectoris ([facility] V24) (Primary Dx); Pure hypercholesterolemia ; Abnormal EKG; Coronary artery disease, unspecified vessel or lesion type, unspecified whether angina present, unspecified whether shoalwater or transplanted heart 07/14/[address] [facility] [address] [facility] [address] [place] [address] Destiney Sutherland MD from Last 3 Months Immunizations Name Administration Dates Next Due Influenza [...] 08/20 OTHER SURGICAL HISTORY 1999 Right PROCEDURE: [place] CAPSULORRHAPHY GLENOHUMERAL JT PST W/WO BONE BLK; COMMENT: NEOS CERVICAL BIOPSY W/ LOOP ELEC TRODE EXCISION PROCEDURE: HISTORICAL CONE BIOPSY; COMMENT: in her 30s TONSILLECTOMY age 4 PROCEDURE: HISTORICAL TONSILLECTOMY; COMMENT: Adnoidectomy UPPER GASTROINTESTINAL ENDOSCOPY 2002 PROCEDURE: UPPER GI ENDOSCOPY/EXAM; COMMENT: Normal 08/20 OTHER SURGICAL HISTORY PROCEDURE: [place] DILATION & CURETTAGE DX&/THER NONOBSTETRIC COLONOSCOPY 2013 PROCEDURE: [place] COLONOSCOPY FLX DX W/COLLJ SPEC WHEN PFRMD; [...] Alive HTN,OSTEOPOROSI S Paternal Grandfather (Age 70'S) CAD/IA Paternal Grandmother (Age 97 YRS ) Sister 1 Alive 2 melanomas Sister 2 Alive Sister 3 Alive Son Alive Social History Tobacco Use Types Packs/Day Years Used Date Smoking Tobacco: Former Cigarettes Q uit: 02/19/1984 Smokeless Tobacco: Never Alcohol Use Standard Drinks/Week Comments Yes 50 (1 standard drink = 0.6 oz pu re alcohol) occ Comments Unknown Sex and Gender Information Value Date Recorded Sex Assigned at Not on file Legal Sex Female 12:28 PM EST Gender Identity Not on file Sexual Orientation Not on file Obstetrics History Last Filed Vital Signs Vital Sign Reading Time Taken Comments Blood Pressure 142/70 08/14/2024 7:40 AM EDT Pulse 57 07/14/2024 8:19 AM EDT Temperature - - Respiratory Rate - - Oxygen Saturation 99% 07/14/2024 8:19 AM EDT Inhaled Oxygen Concentration - - Weight 77.1 kg (170 lb) 08/14/2024 7:40 AM EDT Height 165.1 cm (5' 5 ) 08/14/2024 7:40 AM EDT Body Mass Index 28.29 08/14/2024 7:40 AM EDT Plan of Treatment Upcoming Encounters Date Type Department Care Team (Late st Contact Info) Description 10/06/2024 11:10 AM EDT Appointment Radiology Department [address] [phone] Health Maintenance Due Date Last Done Comments Pneumococcal Vaccine: 50+ Years (2 of 2 - PCV) 11/29/2016 11/30/2015 Colorectal Cancer Screening: Colonoscopy 01/27/2022 Medicare Annual Wellness Visit 01/27/2022 Osteoporosis Screening (Bone Density Screening) 01/27/2022 Social Influencers of Health Screening 01/27/2022 Falls Risk Assessment 2023 COVID-19 Vaccine ( season) 2023 07/22/2021, 02/27/2021, 04/23/2020, Additional history exists Depression Screening 02/19/2024 Influenza Vaccine (#1) 2024 , 11/22/2020, 11/18/2018, Additional history exists Breast Cancer Screening 04/28/2025 04/29/19 24, 04/03/2023, 04/02/2022, Additional history exists Hypertension/CHF/CAD Annual BMP Blood Test 07/14/2025 07/14/2024, 10/04/2021 Cholesterol Screening (Lipid Panel) 07/14/2029 07/14/2024, 10/04/2021 DTaP,Tdap,and Td Vaccines (5 - Td or Tdap) 07/24/2032 07/24/2022, 03/05/2018, 02/02/2013, Additional history exists RSV Immunization Adult Patients (1 - 1-dose 75+ series) 2033 Hepatitis C Screening Completed 11/16/2014 Zoster Vaccines Completed 04/20/2024, 10/19/2020 HIB Vaccines Aged Out No longer eligi [...] Procedure Name Priority Date/Time Associated Diagnosis Comments TRANSTHORACIC ECHOCARDIOGRAM (TTE) COMPLETE Routine 08/14/2024 7:42 AM EDT Coronary artery disease involving shoalwater coronary artery of shoalwater heart with angina pectoris ([facility] V24) BASIC METABOLIC PANEL Routine 07/14/2024 9:10 AM EDT Pure hypercholesterolemia LIPID PANEL WITH REFLEX TO DIRECT LDL Routine 07/14/2024 9:10 AM EDT Pure hypercholesterolemia ECG 12-LEAD Routine 07/14/2024 8:27 AM EDT Coronary artery disease, unspecified vessel or lesion type, unspecified whether angina present, unspecified whether shoalwater or transplanted heart DIAGNOSTIC MAMMOGRAPHY WITH CAD UNILATERAL Routine 04/29/2023 9:32 AM EDT Other abnormal and inconclusive findings on diagnostic imaging of breast HM HEPATITIS C SCREENING Routine 11/16/2014 from Last 3 Months or Most Recently Relevant to Health Maintenance Results * (ABNORMAL) TRANSTHORACIC ECHOCARDIOGRAM (TTE) COMPLETE (08/14/2024 7:42 AM EDT) Left Atrium Minor Cordova 5.5 cm CV PACS Left Atrium Major Cordova 5.7 cm CV PACS LA Area Sys (A2C) 20 cm2 CV PACS LA Area Sys (A4C) 18 cm2 CV PACS LA Volume (BP) 53 mL CV PACS RA Area 13.4 cm2 CV PACS RA 2D Volume 30 mL CV PACS AV Mean Gradient 3 mmHg CV PACS Ao VTI 28.4 cm CV PACS AV Peak Bruce 1.1 m/s CV PACS AV Peak Gradient 5 mmHg CV PACS AV Area Continuity Equation 2.2 cm2 CV PACS AV Area Peak Velocity 2.3 cm2 CV PACS Aortic Arch 2.8 cm CV PACS Ascending Aorta 3.6 cm CV PACS IVC Proximal 1.0 cm CV PACS IVSD 0.9 0.6 - 0.9 cm CV PACS LVIDD 4.6 3.8 - 5.2 cm CV PACS LVIDS 3.6(A) 2.2 - 3.5 cm CV PACS LVOT Diameter 2.1 cm CV PACS LVOT Mean Bruce 0.5 m/s CV PACS LVOT Mean Grad 1 mmHg CV PACS LVOT Peak VTI 18.0 cm CV PACS LVOT Peak Bruce 0.7 m/s CV PACS LVOT Peak Gradient 2 mmHg CV PACS LVPWD 0.8 0.6 - 0.9 cm CV PACS MV E' Tissue Velocity Lateral 7 cm/s CV PACS MV E' Tissue Velocity Septal 8 cm/s CV PACS LVOT Area 3.5 cm2 CV PACS LVOT Stroke Volume 62 mL CV PACS MV Deceleration Wilkin 2.5 m/s2 CV PACS E Wave Deceleration Time 257(A) 119 - 242 ms CV PACS MV PHT 75 ms CV PACS MV Peak A Bruce 0.77 m/s CV PACS MV Peak E Bruce 0.63 m/s CV PACS MV Area PHT 2.9 cm2 CV PACS PV Acceleration Time 111 ms CV PACS PV Acceleration Time 148 ms CV PACS PV Acceleration Time 130 ms CV PACS PV Peak Velocity 0.6 m/s CV PACS PV Peak Gradient 1 mmHg CV PACS RV Diastolic Basal Dimension 2.7 2.5 - 4.1 cm CV PACS TAPSE 18 mm CV PACS TR Peak Velocity 2.26 m/s CV PACS TR Peak Gradient 20 mmHg CV PACS E/E' Ratio Septal 8 CV PACS E/E' Ratio Averaged 8 CV PACS LVOT Stroke Index 34 mL/m2 CV PACS Relative Wall Thickness ratio 0.35 CV PACS LVOT:AV VTI Index 0.63 CV PACS FS 22 % CV PACS LV Mass 2D 128 g CV PACS Ascending Aorta Index 1.95 cm/m2 CV PACS LVOT flow 173 mL/s CV PACS RA 2D Volume Index 16 mL/m2 CV PACS MATTHEW Index (VTI) 1.19 cm2/m2 CV PACS MATTHEW Index (Pk Bruce) 1.24 cm2/m2 CV PACS LVIDD Index 2.49 cm/m2 CV PACS LVIDS Index 1.95 cm/m2 CV PACS AV Velocity Ratio 0.64 CV PACS E/A Ratio 0.8 CV PACS E/E' Ratio Lateral 9 CV PACS LA Volume Index (BP) 29 mL/m2 CV PACS LV Mass Index 2D 69 g/m2 CV PACS BSA 1.88 m2 CV PACS Right Ventricular Peak Systolic Pressure 23 mmHg CV PACS Est. RA Pressure 3 mmHg CV PACS Aortic Root 3.6 cm CV PACS Aortic Root Index 1.95 cm/m2 CV PACS Anatomical Region Laterality Modality Ultrasound Narrative 08/27/2024 2:18 PM EDT Left ventricle cavity size is normal. Left ventricular systolic function is in the normal range with an ejection fraction of 55-60%. No regional LV wall motion abnormalities noted. Right ventricle cavity is normal. Right ventricular systolic function is normal. Mitral Valve: There is mild regurgitation. Tricuspid Valve: There is mild regurgitation. The right ventricular systolic pressure is normal. The RVSP is estimated at 23 mmHg. Left Ventricle Left ventricle cavity size is normal. False tendon noted in the LV apex. Wall thickness is normal. Systolic function is normal with an ejection fraction of 55-60%. There are no regional LV wall motion abnormalities. There is no diastolic dysfunction. Right Ventricle Right ventricle cavity appears normal. Systolic function is normal. Left Atrium Left atrium cavity size is normal. Right Atrium Right atrium cavity is normal. IVC/SVC RA pressures is estimated to be 3 mmHg (IVC diameter <21 mm and decreases >50% during inspiration). Mitral Valve The leaflets are mildly thickened. There is annular calcification. There is mild regurgitation. There is no evidence of mitral valve stenosis. Tricuspid Valve Tricuspid valve structure is normal. There is mild regurgitation. There is no evidence of tricuspid valve stenosis. The right ventricular systolic pressure is normal. The RVSP is estimated at 23 mmHg. Aortic Valve The aortic valve is trileaflet. There is no regurgitation or stenosis. Pulmonic Valve Visualized portions of the pulmonic valve appear normal. No significant pulmonic valve regurgitation. There is no evidence of pulmonic valve stenosis. Ascending Aorta The aorta appears normal in size. Pericardium Pericardium appears normal. There is no pericardial effusion. Study Details Overall the study quality was technically difficult. Destiney Sutherland MD CV ECHO PROCEDURES Fin al Result * Lipid panel with reflex to direct LDL (07/14/2024 9:10 AM EDT) [facility] Signature Cholesterol 190 0 - 200 mg/dL LAB CHEMISTRY METHOD 07/14/2024 12:[address] [facility] Triglycerides 120 0 - 150 mg/dL LAB CHEMISTRY METHOD 07/14/2024 12:[address] [facility] HDL 80 >=40 mg/dL LAB CHEMISTRY METHOD 07/14/2024 12:[address] [facility] LDL Calculated 86 0 - 100 mg/dL LAB CHEMISTRY METHOD 07/14/2024 12:[address] [facility] VLDL Cholesterol Lei 24 mg/dL LAB CHEMISTRY METHOD 07/14/2024 12:06 PM [facility] Non HDL Chol. (LDL+VLDL) 110 <145 mg/dL LAB CHEMISTRY METHOD 07/14/2024 12:[address] [facility] Chol/HDL Ratio 2.4 0.0 - 4.4 LAB CHEMISTRY METHOD 07/14/2024 12:06 PM [facility] Blood Venous blood specimen / Unknown Venipuncture / Unknown 07/14/2024 9:10 AM EDT 07/14/2024 10:49 AM EDT Destiney Sutherland MD LAB BLOOD ORDERABLES F inal Result [facility] [address] [place] [address], * Basic metabolic panel (07/14/2024 9:10 AM EDT) Sodium 140 133 - 145 mmol/L LAB CHEMISTRY METHOD 07/14/2024 12:06 PM [facility] Potassium 3.9 3.5 - 5.5 mmol/L LAB CHEMISTRY METHOD 07/14/2024 12:06 PM [facility] Chloride 107 96 - 110 mmol/L LAB CHEMISTRY METHOD 07/14/2024 12:06 PM [facility] CO2 27 21 - 32 mmol/L LAB CHEMISTRY METHOD 07/14/2024 12:06 PM [facility] Anion Gap 6 3 - 11 LAB CHEMISTRY METHOD 07/14/2024 12:06 PM [facility] Glucose 91 70 - 100 mg/dL LAB CHEMISTRY METHOD 07/14/2024 12:06 PM [facility] BUN 13 5 - 25 mg/dL LAB CHEMISTRY METHOD 07/14/2024 12:06 PM [facility] Creatinine 0.72 0.50 - 1.10 mg/dL LAB CHEMISTRY METHOD 07/14/2024 12:06 PM [facility] eGFR 92 >=60 mL/min/1. 73m2 LAB CHEMISTRY METHOD 07/14/2024 12:06 PM [facility] Comment:Calculation based on the Chronic Kidney Disease Epidemiology Collaboration (CKD-EPI) equation refit without adjustment for race. BUN/Creatinine Ratio 18.1 LAB CHEMISTRY METHOD 07/14/2024 12:06 PM [facility] Calcium 9.8 8.5 - 10.5 mg/dL LAB CHEMISTRY METHOD 07/14/2024 12:06 PM [facility] Blood Venous blood specimen / Unknown Venipuncture / Unknown 07/14/2024 9:10 AM EDT 07/14/2024 10:49 AM EDT Destiney Sutherland MD LAB BLOOD ORDERABLES F inal Result [facility] [address] [place] [address], [place] [phone] * ECG 12 lead (07/14/2024 8:27 AM EDT) Ventricular Rate ECG 49 BPM GEMUSE Atrial Rate 49 BPM GEMUSE P-R Interval 146 ms GEMUSE QRS Duration 84 ms GEMUSE Q-T Interval 418 ms GEMUSE QTc 377 ms GEMUSE P Wave Cordova 59 degrees GEMUSE R Cordova -44 degrees GEMUSE T Cordova -48 degrees GEMUSE ECG Interpretation Sinus bradycardia Left axis deviation Nonspecific T wave abnormality Abnormal ECG No previous ECGs available Confirmed by DESTINEY SUTHERLAND ([id number]) on 07/14/2024 8:34:26 AM GEMUSE 07/14/2024 8:27 AM EDT 07/14/2024 8:34 AM EDT Destiney Sutherland MD ECG ORDERABLES Final Result Performing Organization Address [facility] Co de Phone Number GEMUSE * DIAGNOSTIC MAMMOGRAPHY WITH CAD UNILATERAL (04/29/2023 [...] does not persist on the additional views. No mass or architectural distortion is apparent. Parenchymal pattern is similar to prior exams. The asymmetry in the upper breast localizes to the outer breast on tomosynthesis. Targeted sonography subsequently performed in the upper outer quadrant without a solid or cystic lesion identified. Impression: No suspicious finding on callback imaging. Routine annual screening mammography recommended. BI-RADS 1-negative Procedure [...] imaging. Routine annual screeningmammography recommended. BI-RADS 1-negative Zonia Wall MD IMG BI PROCEDURES Final Re sult * Hepatitis C Screening (11/16/2014) Hepatitis C Screening abstracted Historical Provider HEALTH MAINTENANCE Final Result from Last 3 Months or Most Recently Relevant to Health Maintenance Insurance MEDICARE [facility] Care Teams Plasterer Foreman Relationship Specialty Start Date End Date Sandra Dodd MD [address] [place] [address] PCP - General Internal Medicine 06/29/24
== END 2024-09-08 11:44 | disposition home or self-care (01) ==
LOC: HO.HGI 11:12
PROVIDERS: PCP Internal Medicine; Visit Provider Nurse Practitioner Family
DX: Z01.818 Encounter for other preprocedural examination (principal); Z12.11 Encounter for screening for malignant neoplasm of colon; E66.3 Overweight; Z68.27 Body mass index [BMI] 27.0-27.9, adult
CPT/HCPCS: 99024

== ENCOUNTER → 2024-09-08 11:11 | Outpatient (BNVA) | payer MEDICARE, SELFPAY | PROVIDERS: PCP Internal Medicine; Visit Provider Nurse Practitioner Family | DX: Z01.818 Encounter for other preprocedural examination (principal); Z12.11 Encounter for screening for malignant neoplasm of colon; E66.3 Overweight | CPT/HCPCS: 99212 ==

== ENCOUNTER 2025-02-04 09:22 | Day surgery (SDC) | payer MEDICARE, SELFPAY ==
--- OUTSIDE RECORDS SUMMARY | 2025-01-07 02:20 | XMS_ITS | Encounter Summary ---
Author Organization [facility] Address [address] [place] [address] Care Team Providers Care Banking Services Clerk Name Role Phone Jelly Pinedo MD Primary Care Provider Un available Jelly Pinedo MD Primary Care Provider Un available Jelly Pinedo MD Unavailable Unavaila Chandrakant Trujillo MD Unavailable [phone] [facility], Pcp Primary Care Provider Sandra Granger MD Primary Care Provider Susan sanchez Encounter Details Date Type Department Care Team Description 02/24/2014 Cna Report Medical Records [address] [place] [id number] Lizett López MD Social History Tobacco Use Types Packs/Day Years Used Date Smoking Tobacco: Former Cigarettes 0.5 7 Q uit: 02/19/1984 Smokeless Tobacco: Never Alcohol Use Standard Drinks/Week Comments Yes 50 (1 standard drink = 0.6 oz pu re alcohol) 9 Beers per week Sex Assigned at Date Recorded Not on file Job Start Date Occupation Industry Not on file Not on file Not on file documented as of this encounter Plan of Treatment Not on file documented as of this encounter Visit Diagnoses Not on filedocumented in this encounter Care Teams Banking Services Clerk Relationship Specialty Start Date End Date Jelly Pinedo MD PCP - General 01/09/02 04/02/19 Jelly Pinedo MD PCP - General 04/03/19 11/23/21 [facility], Pcp [address] [place] [address] PCP - General Internal Medicine 11/24/21 04/09/22 Sandra Montalvo MD [address] [place] [address] [place] [address] PCP - General Internal Medicine 04/10/22 Jelly Pinedo MD 04/03/19 06/05/21 Chandrakant Duran MD [address] [place] [address] [place] [address] [employer] Cardiovascular Disease 06/06/21 documented as of this encounter
--- OUTSIDE RECORDS SUMMARY | 2025-01-07 02:20 | XMS_ITS | Encounter Summary ---
Author Organization [facility] Address [address] [place] [address] Care Team Providers Care Forensic Nurse Name Role Phone Jelly Pinedo MD Primary Care Provider Un available Jelly Pinedo MD Primary Care Provider Un available Jelly Pinedo MD Unavailable Unavaila Chandrakant Trujillo MD Unavailable [phone] [facility], Pcp Primary Care Provider Sandra Granger MD Primary Care Provider Susan sanchez Encounter Details Date Type Department Care Team Description 01/12/2014 [facility] [address] [place] [id number] Md Madyson Social History Tobacco Use Types Packs/Day Years [...] on filedocumented in this encounter Care Teams Forensic Nurse Relationship Specialty Start Date End Date Jelly Pinedo MD PCP - General 01/09/02 04/02/19 Jelly Pinedo MD PCP - General 04/03/19 11/23/21 [facility] Pcp [address] [place] [address] PCP - General Internal Medicine 11/24/21 04/09/22 Sandra Montalvo MD [address] [place] [address] [place] [address] PCP - General Internal Medicine 04/10/22 Jelly Pinedo MD 04/03/19 06/05/21 Chandrakant Duran MD [address] [place] [address] [place] [address] Admin Dir Cardiovascular Disease 06/06/21 documented as of this encounter
--- OUTSIDE RECORDS SUMMARY | 2025-01-07 02:20 | XMS_ITS | Data Portability ---
Author Organization [place] - [facility], Allergy Address [address] [address] Assessment Encounter Date Assessment Date Assessment LastModified by Organization Details LastModified Time 07/20/2024 07/20/2024 Hearing devices were found to be in working order after today's cleaning and annual maintenance. Patient's hearing is essentially stable. Reprogramming was performed today using today's audiogram in order to optimize patient's access to speech and language. The patient would like to evaluate the current fitting before making any further changes. Recommend continued annual appointments to ensure that the devices are working to their best potential and to rule out any changes in hearing or need to reprogram the devices. Urgent visits can always be requested or the patient can also utilize our drop-off repair program. [email or web address] Not available 07/20/2024 14:56:54 Plan of Treatment Reminders Order Date Submit Date Provider Last Modified By Organization Details Last Modified Time Details Appointments None record ed. Lab None record ed. Referral None record ed. Procedures None record ed. Surgeries None record ed. Imaging None record ed. Medication Orders None record ed. Patient TargetsNo targets recorded. Patient InstructionsNo instructions recorded. Reason for Referral None Reported. Results Created Date Observation Date Name Description Value Unit Range Abnormal Flag Note LastModifiedBy Organization Detail LastModifiedTime 07/22/19 25 audio gram No observ ation record ed. BARCODE Not Available 2024 08:46:21 Result Notes None recorded. Problems Name Problem SNOMED Code Status Onset Date Resolution Date Notes Provider Name and Address Organization Details Recorded Time Sensorine ural hearing loss of bilateral ears 330457277 Active 2015 Sensorine ural hearing loss, bilateral ; Note: Date Diagnosed : 03/30/2015 11:34 AM (H90.3) Not Available [facility] 4 02:23:43 Deviated nasal septum 666305749 Active 2015 Deviated nasal septum; Note: Date Diagnosed : 03/30/2015 11:12 AM (J34.2) Not Available [facility] 4 02:22:58 Chronic rhinitis 89241613 Active 2015 Chronic rhinitis; Note: Date Diagnosed : 03/30/2015 11:12 AM (J31.0) Not Available [facility] 4 02:23:43 Hypertrop hy of nasal turbinate s 06763234 Active 2015 Hypertrop hy of nasal turbinate s; Note: Date Diagnosed : 03/30/2015 11:12 AM (J34.3) Not Available [facility] 4 02:23:10 Bilateral tinnitus 45487757769 02 Active 2015 Tinnitus, bilateral ; Note: Date Diagnosed : 03/30/2015 11:12 AM (H93.13) Not Available [facility] 4 02:23:19 Posterior rhinorrhe a 79963790 Active 2016 Postnasal drip; Note: Date Diagnosed : 03/06/2016 10:00 AM (R09.82) Not Available [facility] 4 02:23:38 Gastroeso phageal reflux disease without esophagit is 685541928 Active 2016 Gastro-es ophageal reflux disease without esophagit is; Note: Date Diagnosed : 04/26/2016 9:03 AM (K21.9) Not Available [facility] 4 02:22:55 Allergic rhinitis 05617300 Active 2020 Allergic Rhinitis; Note: Date Diagnosed : 05/21/2017 9:27 AM (477.9) ; Start Date : 8 Perenni al allergic rhinitis; Note: Date Diagnosed : 05/23/2016 9:17 AM (J30.89) ; Start Date : 7 Allergi c rhinitis, unspecifi ed; Note: Date Diagnosed : 11/09/2020 8:52 AM (J30.9) Not Available [facility] 4 02:23:09 Problem Notes None recorded. Procedures Surgical History Date Name Laterality Status Provider Name and Address Organization Details Recorded Time 07/20/2024 Air & Speech Audio - 78440 & 11231 completed ELY ASTORGA, AuD [address] [facility], [place], [address], [facility] - [facility] 07/20/2024 10:53:48 Imaging Results None recorded. Procedure Notes None recorded. Medical Equipment None Reported. Allergies Allergen ID Allergen Name Allergen Category Reaction Reaction Severity Criticality Documentation Date Start Date Code Code System Note Provider Name and Address Organization Details Recorded Time 22266 Substance with sulfonami de structure and antibacte rial mechanism of action (substanc e) medicatio n other Not available Not available 07/02/2023 16249 8003 SNOMED React ion: unkno wn, unspe cifie d;; Not Available [facility] 4 00:56:23 Medications Name Sig Start Date Stop Date Status Note LastModified by Organization Details LastModified Time ibuprofen 200 mg capsule 2015 active Medicati on ID: [id number] B rand Name: ibuprofe n Send Method: E-Prescr ibed Sub s Allowed: subs OK Medic ationGen ericName : ibuprofe n Not Available Not Available Not Available Atrovent 0.03 % nasal spray 2 spray into both nostrils 2015 active Medicati on ID: [id number] P rescribe d By Name: Camryn Gillis nd Name: Atrovent Send Method: E-Prescr ibed Sub s Allowed: subs OK Medic ationGen ericName : Atrovent Not Available Not Available Not Available Zantac 150 mg tablet 2016 active Medicati on ID: [id number] B rand Name: Zantac S end Method: E-Prescr ibed Sub s Allowed: subs OK Speci al Instruct ion: Take 1 tablet by mouth BID Medi cationGe nericNam e: Zantac Not Available Not Available Not Available lorazepam 0.5 mg tablet 2015 active Medicati on ID: [id number] D uration Value: 15 Brand Name: lorazepa m Send Method: E-Prescr ibed Sub s Allowed: subs OK Speci al Instruct ion: TAKE 1 TABLET BY MOUTH TWICE DAILY NEEDED FOR ANXIETY Medicati onGeneri cName: lorazepa m Not Available Not Available Not Available pantopraz ole 40 mg tablet,de layed release 1 tablet by mouth 2016 active Medicati on ID: [id number] D uration Value: 90 Prescri bed By Name: Eric kwan MD Brand Name: pantopra zole Sen d Method: E-Prescr ibed Sub s Allowed: subs OK Medic ationGen ericName : pantopra zole Not Available Not Available Not Available omeprazol e 20 mg capsule,d elayed release 1 capsule by mouth 2016 active Medicati on ID: [id number] D uration Value: 30 Prescri bed By Name: Eric kwan MD Brand Name: omeprazo le Send Method: E-Prescr ibed Sub s Allowed: subs OK [facility] omeprazo le Not Available Not Available Not Available metoprolo l succinate ER 25 mg tablet,ex tended release 24 hr TAKE 1 TABLET DAILY active Not Available Not Available No t Available azelastin e 137 mcg (0.1 %) nasal spray Inhale 2 spray into both nostrils twice a day as directed 12/08 completed Medicati on ID: [id number] D uration Value: 90 Prescri bed By Name: Eric kwan MD Brand Name: azelasti ne Send Method: E-Prescr ibed Sub s Allowed: subs OK [facility] er[facility] : azelasti ne Not Available Not Available Not Available doxycycli ne hyclate 100 mg tablet TAKE 1 TABLET (100 MG TOTAL) BY MOUTH TWICE A DAY FOR 10 DAYS - NOT FOR PREGNANC Y/LACTAT ION active Not Available Not Available No t Available nitrofura ntoin monohydra te/macroc rystals 100 mg capsule TAKE 1 CAPSULE (100 MG TOTAL) BY MOUTH EVERY 12 (TWELVE) HOURS FOR 5 DAYS. active Not Available Not Available No t Available estradiol 10 mcg vaginal tablet insert 1 tablet vaginall y thrice A WEEK active Not Available Not Available No t Available EpiPen 2-Sajan 0.3 mg/0.3 mL injection , auto-inje ctor Inject 1 pen injector intramus cularly single dose as needed 2019 active Medicati on ID: [id number] D uration Value: 1 Prescri bed By Name: Eric kwan MD Brand Name: EpiPen 2-Sajan Se nd Method: E-Prescr ibed Sub s Allowed: subs OK Medic ationGen ericName : EpiPen 2-Sajan Not Available Not Available Not Available Flonase Allergy Relief 50 mcg/actua tion nasal spray,michael pension 2 puff into both nostrils once a day 03/30 completed Medicati on ID: [id number] D uration Value: 120 Brand Name: Flonase Allergy Relief S end Method: E-Prescr ibed Sub s Allowed: subs OK Medic ationGen ericName : Flonase Allergy Relief Not Available Not Available Not Available Repatha Syringe 140 mg/mL subcutane ous syringe Inject 140 mg into the skin every 14 days. active Not Available Not Available No t Available Vitals None Recorded Social History None recorded. Functional Status None recorded. Mental Status None recorded. Family History Nothing Reported. Medical History No medical history recorded. Gynecological HistoryNo gynecological history recorded. Obstetrics History GPAL:G 0 P 0 0 0 0 Past Encounters Encounter ID Performer Location Encounter Start Date Encounter Closed Date Diagnosis/Indication Diagnosis SNOMED-CT Code Diagnosis ICD10 Code Diagnosis IMO Codes Diagnosis Note [id number] Jennifer SNYDER [facility] [place] [address] [place] [id number] 07/20/2024 13:56:51 07/21/2024 15:40:39 Sensorineural hearing loss of bilateral ears [id number] H90.3 Health Concerns Section Related Observation LastModified by Organization Detai ls LastModified Time None Recorded Concern Status LastModified by Organization Details LastModified Time None Recorded Advance Directives Directive None Recorded Payers Insurance Date Sequence Insurance Name Policy Number Policy Lee Covered Member ID Lee Member ID Guarantor Name 07/20/2024 2 [place] [id number] Jelly Dover [id number] Jelly Dover 07/20/2024 1 [place] Jelly Dover [id number] Jelly Dover 08/13/2024 2 [place]LE[place]) Jelly Dover Notes Date Note Type Note Provider Name and Address Organization Details Recorded Time 07/20/2024 text/html Hearing Technolo gy HistoryReported by PatientReported status of current hearing technologyFor sound quality and programming settings, patient reportsthat they would like improvements to current settings or technology. For daily use, patient reportsconsistent use of technology. For reported condition, patient reportsin working condition. Patient returned for their annual fitting of amplification to discuss their ongoing communication needs and progress with amplification. They reported a change in their hearing. The devices are out of warranty at this time. ELY ASTORGA, [facility] [address] [facility],[place] [address], [place], [address], [facility] - [facility] 07/20/2024 14:57:13 OBGyn Episode No OBEpisode recorded.
--- OUTSIDE RECORDS SUMMARY | 2025-01-07 02:20 | XMS_ITS | Encounter Summary ---
Author Organization [facility] Address [address] [place] [address] Care Team Providers Care Thermoscrew Operator Name Role Phone Chandrakant Duran MD Unavailable [phone] Sandra Montalvo MD Primary Care Provider Unavaila ble Encounter Details Date Type Department Care Team Description 05/10/2023 SCAN Medical Records [address] [place] [address] [facility] Social History Tobacco Use Types Packs/Day Years Used Date Smoking Tobacco: Former Cigarettes 0.5 7 Q uit: 02/19/1984 Smokeless Tobacco: Never Comments:late teens early 20 s ~6 years, light smoker Alcohol Use Standard Drinks/Week Comments Yes 48 (1 standard drink = 0.6 oz pure alcohol) 5-9 Beers per week on weekends Sex Assigned at Date Recorded Not on file Job Start Date Occupation Industry Not on file Not on file Not on file documented as of this encounter Plan of Treatment Not on file documented as of this encounter Visit Diagnoses Not on filedocumented in this encounter Care Teams Thermoscrew Operator Relationship Specialty Start Date End Date Sandra Montalvo MD [address] [place] [address] PCP - General Internal Medicine 04/10/22 Chandrakant Duran MD [place] [address] Associate Product Integrity Engineer Cardiovascular Disease 06/06/21 documented as of this encounter
--- OUTSIDE RECORDS SUMMARY | 2025-01-07 02:20 | XMS_ITS | Encounter Summary ---
Author Organization [facility] Address [address] [place] [address] Care Team Providers Care Fusion Analyst Name Role Phone Chandrakant Duran MD Unavailable [phone] Sandra Montalvo MD Primary Care Provider Unavaila ble Encounter Details Date Type Department Care Team Description 04/30/2023 SCAN Medical Records [address] [place] [address] Abstract, Provider Social History Tobacco Use Types Packs/Day Years [...] on file documented as of this encounter Procedures Procedure Name Priority Date/Time Associated Diagnosis Comments OUTSIDE LAB Routine 04/30/2023 documented in this encounter Results * OUTSIDE LAB (04/30/2023) Provider Default LAB documented in this encounter Visit Diagnoses Not on filedocumented in this encounter Care Teams Fusion Analyst Relationship Specialty Start Date End Date Sandra Montalvo MD [facility] [place] [address] PCP - General Internal Medicine 04/10/22 Chandrakant Duran MD [address] [place] [address] [place] [address] Investor Relations Specialist Cardiovascular Disease 06/06/21 documented as of this encounter
--- OUTSIDE RECORDS SUMMARY | 2025-01-07 02:20 | XMS_ITS | Encounter Summary ---
Author Organization [facility] Address [address] [place] [address] Care Team Providers Care Manager Culinary Name Role Phone Jelly Pinedo MD Primary Care Provider Un available Jelly Pinedo MD Primary Care Provider Un available Jelly Pinedo MD Unavailable Unavaila Chandrakant Trujillo MD Unavailable [facility] Pcp Primary Care Provider UnavailSandra Blanco MD Primary Care Provider Unavailelliot sanchez Encounter Details Date Type Department Care Team Description 11/12/2017 Surgical Orderly Report Medical Records [address] [place] [id number] Eric Hopper Social History Tobacco Use Types Packs/Day Years [...] on filedocumented in this encounter Care Teams Manager Culinary Relationship Specialty Start Date End Date Jelly Pinedo MD PCP - General 01/09/02 04/02/19 Jelly Pinedo MD PCP - General 04/03/19 11/23/21 Community, Pcp [address] [facility] [place] [address] PCP - General Internal Medicine 11/24/21 04/09/22 Sandra Montalvo MD [address] [place] [address] [place] [address] PCP - General Internal Medicine 04/10/22 Jelly Pinedo MD 04/03/19 06/05/21 Chandrakant Duran MD [address] [place] [address] [place] [address] Public Service Representative Cardiovascular Disease 06/06/21 documented as of this encounter
--- OUTSIDE RECORDS SUMMARY | 2025-01-07 02:20 | XMS_ITS | Encounter Summary ---
Author Organization [facility] Address [address] [place] [address] Care Team Providers Care Surgical Technician Name Role Phone Jelly Pinedo MD Primary Care Provider Un available Jelly Pinedo MD Primary Care Provider Un available Jelly Pinedo MD Unavailable Unavaila Chandrakant Trujillo MD Unavailable [phone] [facility], Pcp Primary Care Provider Sandra Granger MD Primary Care Provider Unavailelliot sanchez Encounter Details Date Type Department Care Team Description 06/22/2014 Pt. Non Urgent Medical Question Medicine/Pediatrics - [address] [address] Jami Castillo PA-C Social History Tobacco Use Types Packs/Day Years [...] on file documented as of this encounter Progress Notes * Vivien Avitia L.P.N. - 06/22/2014 9:07 AM EDTFrom: Jelly Dover To: Jami Castillo PA-C Sent: 06/22/2014 5:58 AM EDT Subject: Insomnia Good morning- For the past few months, but especially more so recently, I've been having difficulty sleeping morethan 1-2 hours through the night. On average, I wake up at least 4 times during the night. Sometimes, but not always, this is caused by night sweats which I attribute to the awful M word,. I've tried melatonin but that doesn't help and using Tylenol PM, an Ativan or any kind of OTC sleeping pill (even cut in half) leaves me feeling so sluggish the next day. Is there anything that could be suggested or prescribed that might help yet not linger with me in the morning? Thank you. documented in this encounter Plan of Treatment Not on file documented as of this encounter Visit Diagnoses Not on filedocumented in this encounter Care Teams Surgical Technician Relationship Specialty Start Date End Date Jelly Pinedo MD PCP - General 01/09/02 04/02/19 Jelly Pinedo MD PCP - General 04/03/19 11/23/21 [facility], [address] [place] [address] PCP - General Internal Medicine 11/24/21 04/09/22 Sandra Montalvo MD [address] [place] [address] [place] [address] PCP - General Internal Medicine 04/10/22 Jelly Pinedo MD 04/03/19 06/05/21 Chandrakant Duran MD [address] [place] [address] [place] [address] Operational Intelligence Officer Cardiovascular Disease 06/06/21 documented as of this encounter
--- OUTSIDE RECORDS SUMMARY | 2025-01-07 02:20 | XMS_ITS | Encounter Summary ---
Author Organization [facility] Address [address] [place] [address] Care Team Providers Care Layer Off Name Role Phone Jelly Pinedo MD Primary Care Provider Un available Jelly Pinedo MD Primary Care Provider Un available Jelly Pinedo MD Unavailable Unavaila Chandrakant Trujillo MD Unavailable [phone] [facility], Pcp Primary Care Provider Sandra Granger MD Primary Care Provider Unavailelliot sanchez Encounter Details Date Type Department Care Team Description 01/02/2018 Pt. Non Urgent Medic al Question Medicine/Pediatrics - [address] [phone] Jonathan Dover PA-C Social History Tobacco Use Types Packs/Day [...] Progress Notes * Vivien Avitia L.P.N. - 01/02/2018 9:08 AM ESTFrom: Jelly Dover To: Jonathan Dover PA-C Sent: 01/02/2018 6:09 AM EST Subject: Insomnia issues Good morning, When I last saw you in September, we discussed different techniques to solve the insomnia I was experiencing including reduction of electronic device usage, taking melatonin at the same time each early evening, trying to develop a more consistent sleep schedule. I've tried all those approaches and am still having real difficulty staying asleep. I have no problem falling asleep, but wake at least 4-5times during the night. Sometimes it's due to a night sweat or bathroom need, but many times it's for no specific reason that I can pinpoint. You had mentioned Trazadone as an option which I was, at that time, resistant to try. But this insomnia is really affecting my daytime functioning. Is it possible for you to prescribe the smallest dosage available for me to try in the hopes it will allow meto sleep through the night and not wake up feeling all sluggish? Thanks in advance and have a wonderful Thanksgiving! documented in this encounter Plan of Treatment Not on file documented as of this encounter Visit Diagnoses Not on filedocumented in this encounter Care Teams Layer Off Relationship Specialty Start Date End Date Jelly Pinedo MD PCP - General 01/09/02 04/02/19 Jelly Pinedo MD PCP - General 04/03/19 11/23/21 [facility], Pcp [address] [place] [address] [place] [address] PCP - General Internal Medicine 11/24/21 04/09/22 Sandra Montalvo MD [address] [place] [address] [place] [address] PCP - General Internal Medicine 04/10/22 Jelly Pinedo MD 04/03/19 06/05/21 Chandrakant Duran MD [address] [place] [address] [place] [address] Pin Or Clip Fastener Cardiovascular Disease 06/06/21 documented as of this encounter
--- OUTSIDE RECORDS SUMMARY | 2025-01-07 02:20 | XMS_ITS | Encounter Summary ---
Author Organization [facility] Address [address] [place] [address] Care Team Providers Care Evening Or Night Nurse Supervisor Name Role Phone Jelly Pinedo MD Primary Care Provider Un available Jelly Pinedo MD Primary Care Provider Un available Jelly Pinedo MD Unavailable Unavaila Chandrakant Trujillo MD Unavailable [phone] [facility], Pcp Primary Care Provider Sandra Granger MD Primary Care Provider Susan sanchez Encounter Details Date Type Department Care Team Description 03/30/2016 Detention Officer Report Medical Records [address] [place] [id number] Charles Sheridan MD Social History Tobacco Use Types Packs/Day [...] on filedocumented in this encounter Care Teams Evening Or Night Nurse Supervisor Relationship Specialty Start Date End Date Jelly Pinedo MD PCP - General 01/09/02 04/02/19 Jelly Pinedo MD PCP - General 04/03/19 11/23/21 Community, Pcp [address] [facility] [place] [address] PCP - General Internal Medicine 11/24/21 04/09/22 Sandra Montalvo MD [address] [place] [address] [place] [address] PCP - General Internal Medicine 04/10/22 Jelly Pinedo MD 04/03/19 06/05/21 Chandrakant Duran MD [address] [place] [address] [place] [address] User Experience Researcher Cardiovascular Disease 06/06/21 documented as of this encounter
--- OUTSIDE RECORDS SUMMARY | 2025-01-07 02:20 | XMS_ITS | Encounter Summary ---
Author Organization [facility] Address [address] [place] [address] Care Team Providers Care Telesales Agent Name Role Phone Jelly Pinedo MD Primary Care Provider Un available Jelly Pinedo MD Unavailable Unavaila ble Chandrakant Duran MD Unavailable [phone] [facility], Pcp Primary Care Provider UnavailSandra Blanco MD Primary Care Provider Unavaila ble Reason for Visit * Reason Onset Date Comments Sore Throat 01/13/2021 sinus infection 01/13/2021 Cough 01/13/2021 Encounter Details Date Type Department Care Team Description 01/13/2021 Telephone Medicine/Pediatrics - [address] [phone] Jelly Pinedo MD Sore Throat; sinus infection; Cough Social History Tobacco Use Types Packs/Day Years [...] on file documented as of this encounter Miscellaneous Notes * Telephone Encounter - Vivien Avitia L.P.N. - 01/13/2021 9:09 AM EST Pt has cold sx has a st and sinus pain and pressure Low grade temp cough COVID neg on 01/06/2021 Per protocol we can not seen Will go to a walk or er * Telephone Encounter - Tatiana alexandre Marquis - 01/13/2021 8:51 AM EST Symptoms patient is presenting: Patient has a really bad sore throat, sinus problems/pain, and coughing a lot. Had a low grade fever last week. Had a negative covid test on 01/08 For ALL patients calling to schedule any appointment (routine, sick visit, follow up, consult, etc.) in the outpatient setting please ask the following questions: ?? Do you have fever of higher than 101, sore throat with difficulty swallowing or severe shortnessof breath? YES If YES to any of these above symptoms, send a message to triage and do not book. Red dot. If no, an audio or video visit should be booked. ?? Have you had close contact with someone with Coronavirus in the last 14 days? NO ?? Have you traveled abroad? NO ?? Have you traveled recently to another state outside of [place], [place], [place], [place], [place], [place], [place]? NO o If yes, did you quarantine for 14 days or have a negative covid test? NO If yes to any of the above, patient is not to be scheduled in office until after 14 day quarantine or negative covid test. If pain or injury related was it due to an accident at work or from a motor vehicle accident? NO If yes, gather 3rd libertarian insurance information Date of accident/Injury: How long has patient had these symptoms?: about 1 wk PCP: Jelly Pinedo Payor: CHRISTELLE/O FFS / Plan: ALYCE SWEET $20 / Product Type: HMO [id number]-Ccymafs documented in this encounter Plan of Treatment Not on file documented as of this encounter Visit Diagnoses Not on filedocumented in this encounter Care Teams Telesales Agent Relationship Specialty Start Date End Date Jelly Pinedo MD PCP - General 04/03/19 11/23/21 [facility], Pcp [address] [place] [address] PCP - General Internal Medicine 11/24/21 04/09/22 Sandra Montalvo MD [address] [place] [address] [place] [address] PCP - General Internal Medicine 04/10/22 Jelly Pinedo MD 04/03/19 06/05/21 Chandrakant Duran MD [address] [place] [address] [place] [address] Menswear Salesperson Cardiovascular Disease 06/06/21 documented as of this encounter
--- OUTSIDE RECORDS SUMMARY | 2025-01-07 02:20 | XMS_ITS ---
Author Name [facility] Organization Unknown Encounters Encounter Type Encounter Reason Primary Diagnosis Location Date Ambulatory [facility] Med ical Group 12/17/2023 Care Team Organization Name Specialty Phone Email Start Date End Da te [facility] Medical Group 06/13/2024 [facility] NULL Primary Care 11/28/2023 03/31/2024 [facility] Termed, PROVIDER Primary Care 12/26/202109/18
--- OUTSIDE RECORDS SUMMARY | 2025-01-07 02:20 | XMS_ITS | Encounter Summary ---
Author Organization [facility] Address [address] [place] [address] Care Team Providers Care Classroom Aide Name Role Phone Jelly Pinedo MD Primary Care Provider Un available Jelly Pinedo MD Unavailable Unavaila ble Chandrakant Duran MD Unavailable [phone] [facility], Pcp Primary Care Provider UnavailSandra Blanco MD Primary Care Provider Unavaila ble Reason for Visit * Reason Comments E-prescribe Rx Request Encounter Details Date Type Department Care Team Description 01/25/2021 Refill Cardio [facility] [address] [place] [id number] Mike Engel NP [address] [place] [address] E-prescribe Rx Request Social History Tobacco Use Types Packs/Day Years [...] encounter Miscellaneous Notes * Telephone Encounter - Dulce Butler C.M.A. - 01/25/2021 8:23 AM EST Alberto 01/02/20--efaxed a refill for Metoprolol and rosuvastatin--last lipids updated 10/2020 Scheduling team please arrange for a follow up appt --and call pt with details--thank you documented in this encounter Plan of Treatment Not on file documented as of this encounter Visit Diagnoses Not on filedocumented in this encounter Care Teams Classroom Aide Relationship Specialty Start Date End Date Jelly Pinedo MD PCP - General 04/03/19 11/23/21 [facility], Pcp [address] [place] [address] [place] [address] PCP - General Internal Medicine 11/24/21 04/09/22 Sandra Montalvo MD [address] [place] [address] [place] [address] PCP - General Internal Medicine 04/10/22 Jelly Pinedo MD 04/03/19 06/05/21 Chandrakant Duran MD [address] [place] [address] [place] [address] Office Assistant Cardiovascular Disease 06/06/21 documented as of this encounter
--- OUTSIDE RECORDS SUMMARY | 2025-01-07 02:20 | XMS_ITS | Clinical Summary ---
Author Organization [facility] Address [address] [place] [address] Care Team Providers Care Graduate Recruiter Name Role Phone Chandrakant Duran MD Unavailable [phone] Sandra Montalvo MD Primary Care Provider Unavaila ble Allergies Active Allergy Reactions Severity Noted Date Comments Aspartame Nausea and Vomiting 12/24/2008 Sulfa Drugs Swelling/Edema High 04/11/2005 swelling of mouth anf lips Medications Medication Sig Dispensed Refills Start Date End Date Status IBU-200 200 MG OR TABS 1 TABLET EVERY 4 TO 6 HOURS NEEDED 0 Active FEXOFENADINE HCL OR 0 Activ e azelastine (ASTELIN) 0.1 % nasal spray daily as needed. 0 03/24/2018 A ctive Cholecalciferol (VITAMIN D3) 5000 units Cap Take by mouth daily. 0 Active Misc Natural Products (JOINT SUPPORT COMPLEX) Cap Take by mouth daily. 0 Active Bioflavonoid Products (SHEY-C) 500-200-60 MG Tab Take by mouth daily. 0 Active lorazepam (ATIVAN) 0.5 MG tablet Take 1 tablet by mouth 2 times daily as needed for Anxiety. 30 tablet 0 10/18/2020 Active [place]-3 Fatty Acids (Fish Oil) 1000 MG Cap Take 1 Capsule by mouth daily. 0 Active Coenzyme Q10 (CoQ10) 200 MG Cap Take 1 Capsule by mouth daily. 0 Active aspirin (Aspirin 81) 81 MG EC tablet Take 1 Tablet by mouth daily. 30 Tablet 5 06/13/2021 Active TURMERIC OR Take 1,000 mg by mouth daily. 0 Active Evolocumab 140 MG/ML Solution Auto-injector Inject 140 mg into the skin every 14 days. 6 mL 3 03/26/2023 Active metoprolol (TOPROL-XL) 25 MG 24 hr tablet TAKE 1 TABLET DAILY 90 Tablet 3 06/27/2023 Active Active Problems Problem Noted Date CAD (coronary artery disease) 06/13/2021 Last Assessment & Plan: A stress echocardiogram was completed August 2019 which showed exercise-induced hypokinesis of the basal to mid inferior wall. The patient has presumed coronary artery disease given this abnormal stress echocardiogram. Medical therapy was advised. The patient is currently asymptomatic from a cardiac standpoint while on medical therapy with aspirin and metoprolol succinate. She denies exertional anginal symptoms. HLD (hyperlipidemia) 06/13/2021 Last Assessment & Plan: The patient has [...] and following up with routine medical care. Ectatic aorta 01/15/2017 Overview: Noted on CT 2015 3.8 cm dilated ascending aorta noted on CT 03/2017. Saw Vascular Dr. Fatimah Soto 04/2017 Sleep difficulties 01/15/2017 Gastroesophageal reflux disease 01/16/20 17 Pulmonary nodule 12/21/2016 Nonallergic rhinitis 12/12/2015 Tinnitus 12/24/2008 Recurrent sinus infections 12/24/2008 Resolved Problems Problem Noted Date Resolved Date Mitral valve disorders 07/10/2005 5 Overview: Mild IMO update Palpitations 04/11/2005 11/16/2014 Overview: mild PVC Immunizations Name Administration Dates Next Due COVID-19 (Pfizer) 04/23/2020,04/02/2020 Influenza (> 6 Months) 11/19/2017,2016,11/30/2015,12/07,11/17/2013,12/15/2012,11/18/2009 Pneumoccoccal(Adult) Polysac charide PPSV23 11/30/2015 Shingrix (Patient reported) 10/19/2020 TETANUS/DIPTHERIA (ADULT) 06/05/2002 Tdap 02/02/2013 Family History Medical History Relation Name Comments Cancer of the Pancreas Father CA Breast Maternal Grandmother 1 40 Cancer of the Breast Maternal Grandmother 1 40 Hypertension Mother CAD Paternal Grandfather KIDNEY STONES Paternal Grandfather LA Paternal Grandfather Melanoma Sister 1 Relation Name Status Comments Brother 1 Alive Brother 2 Alive recovered ETOH Brother 3 Alive Daughter Alive Father (Age 64 YRS) PANCRE ATIC CA Maternal Grandfather heart d isease Maternal Grandmother 1 40 Maternal Grandmother 2 (Age 43) BREAST CA Mother Alive HTN,OSTEOPOROSI S Paternal Grandfather (Age 70'S) CAD/LA Paternal Grandmother (Age 97 YRS ) Sister 1 Alive 2 melanomas Sister 2 Alive Sister 3 Alive Son Alive Social History Tobacco Use Types Packs/Day Years Used Date Smoking Tobacco: Former Cigarettes 0.5 7 Q uit: 02/19/1984 Smokeless Tobacco: Never Tobacco Cessation:Counseling Given: Not Answered Comments:late teens early 20s ~6 years, light smoker Alcohol Use Standard Drinks/Week Comments Yes 48 (1 standard drink = 0.6 oz pure alcohol) 5-9 Beers per week on weekends Sex Assigned at Date Recorded Not on file Job Start Date Occupation Industry Not on file Not on file Not on file Last Filed Vital Signs Vital Sign Reading Time Taken Comments Blood Pressure 122/80 05/10/2023 7:41 AM EDT Pulse 65 05/10/2023 7:41 AM EDT Temperature 36.6 C (97.8 F) 10/31/2020 2:28 PM EDT Respiratory Rate 18 10/31/2020 2:28 PM EDT Oxygen Saturation 97% 05/10/2023 7:41 AM EDT Inhaled Oxygen Concentration - - Weight 78.3 kg (172 lb 9.6 oz) 05/10/2023 7:41 A M EDT Height 165.1 cm (5' 5 ) 05/10/2023 7:41 AM EDT Body Mass Index 28.72 05/10/2023 7:41 AM EDT Plan of Treatment Health Maintenance Due Date Last Done Comments DEPRESSION SCREEN 1970 SHINGLES VACCINE (2 of 2) 12/14/2020 10/19/2020 DTAP/TDAP/TD (2 - Td or Tdap) 02/02/2023 02/02/2013 BONE DENSITY SCREENING 2023 FALL RISK ASSESSMENT 2023 PNEUMOCOCCAL VACCINE (2 - PCV) 2023 11/30/2015 COLON CANCER SCREENING 06/02/2023 , 06/01/2013, 09/02/2002 (External Completion), Additional history exists BMI CHECK/ADVISE 02/19/2024 10/31/2020, 06/2019, 03/04/2019, Additional history exists MAMMOGRAM 04/28/2024 04/29/2023, 03/21, 04/02/2022, Additional history exists Covid-19 Vaccine (2022-2 4 season) 2024 04/23/2020, 04/02/2020 INFLUENZA (#1) 2024 11/18/2018, 02/2018 (External Completion of Vaccination per patient), 11/19/2017, Additional history exists CHOLESTEROL SCREENING 10/04/2026 10/04/2021 , 10/31/2020, 02/01/2017, Additional history exists HEPATITIS C SCREENING Completed 11/16/2014 Care Teams Graduate Recruiter Relationship Specialty Start Date End Date Sandra Montalvo MD [address] [place] [address] [place] [address] PCP - General Internal Medicine 04/10/22 Chandrakant Duran MD [address] [place] [address] Dr [address] [place] [address] Trial Lawyer Cardiovascular Disease 06/06/21
--- OUTSIDE RECORDS SUMMARY | 2025-01-07 02:20 | XMS_ITS | Encounter Summary ---
Author Organization [facility] Address [address] [place] [address] Care Team Providers Care Media Developer Name Role Phone Jelly Pinedo MD Primary Care Provider Un available Jelly Pinedo MD Primary Care Provider Un available Jelly Pinedo MD Unavailable Unavaila Chandrakant Trujillo MD Unavailable [phone] [facility], Pcp Primary Care Provider Sandra Granger MD Primary Care Provider Susan sanchez Encounter Details Date Type Department Care Team Description 12/03/2016 [facility] Medical Records [address] [place] [id number] Abstract, Provider Social History Tobacco Use Types [...] on filedocumented in this encounter Care Teams Media Developer Relationship Specialty Start Date End Date Jelly Pinedo MD PCP - General 01/09/02 04/02/19 Jelly Pinedo MD PCP - General 04/03/19 11/23/21 [facility], Pcp [address] [place] [address] PCP - General Internal Medicine 11/24/21 04/09/22 Sandra Montalvo MD [address] [place] [address] [place] [address] PCP - General Internal Medicine 04/10/22 Jelly Pinedo MD 04/03/19 06/05/21 Chandrakant Duran MD [address] [place] [address] [place] [address] Top Icer Cardiovascular Disease 06/06/21 documented as of this encounter
--- OUTSIDE RECORDS SUMMARY | 2025-01-07 02:20 | XMS_ITS | Encounter Summary ---
Author Organization [facility] Address [address] [place] [address] Care Team Providers Care Conservation Planner Name Role Phone Jelly Pinedo MD Primary Care Provider Un available Jelly Pinedo MD Unavailable Unavaila ble Chandrakant Duran MD Unavailable [phone] [facility], Pcp Primary Care Provider Sandra Granger MD Primary Care Provider Unavailelliot sanchez Encounter Details Date Type Department Care Team Description 12/23/2019 Cable Reeler Report Medical Records [address] [place] [id number] Karen Tapia MD Social History Tobacco Use Types Packs/Day [...] on filedocumented in this encounter Care Teams Conservation Planner Relationship Specialty Start Date End Date Jelly Pinedo MD PCP - General 04/03/19 11/23/21 [facility], [address] [place] [address] PCP - General Internal Medicine 11/24/21 04/09/22 Sandra Montalvo MD [address] [place] [address] [place] [address] PCP - General Internal Medicine 04/10/22 Jelly Pinedo MD 04/03/19 06/05/21 Chandrakant Duran MD [address] [place] [address] [place] [address] Lift Team Technician Cardiovascular Disease 06/06/21 documented as of this encounter
--- OUTSIDE RECORDS SUMMARY | 2025-01-07 02:20 | XMS_ITS | Encounter Summary ---
Author Organization [facility] Address [address] [place] [address] Care Team Providers Care Work Station Support Specialist Name Role Phone Jelly Pinedo MD Primary Care Provider Un available Jelly Pinedo MD Primary Care Provider Un available Jelly Pinedo MD Unavailable Unavaila Chandrakant Trujillo MD Unavailable [phone] On License Of [facility], Pcp Primary Care Provider Sandra Granger MD Primary Care Provider Susan sanchez Encounter Details Date Type Department Care Team Description 03/30/2015 Final Cigar And Box Examiner Report Medical Records [address] [place] [address] Carlos Alegria MD Social History Tobacco Use Types Packs/Day [...] on filedocumented in this encounter Care Teams Work Station Support Specialist Relationship Specialty Start Date End Date Jelly Pinedo MD PCP - General 01/09/02 04/02/19 Jelly Pinedo MD PCP - General 04/03/19 11/23/21 On License Of [facility], Pcp [facility] [place] [address] PCP - General Internal Medicine 11/24/21 04/09/22 Sandra Montalvo MD [address] [place] [address] [place] [address] PCP - General Internal Medicine 04/10/22 Jelly Pinedo MD 04/03/19 06/05/21 Chandrakant Duran MD [address] [place] [address] [place] [address] Pattern Filer Cardiovascular Disease 06/06/21 documented as of this encounter
--- OUTSIDE RECORDS SUMMARY | 2025-01-07 02:20 | XMS_ITS | Encounter Summary ---
Author Organization [facility] Address [address] [place] [address] Care Team Providers Care Creping Machine Operator Name Role Phone Jelly Pinedo MD Primary Care Provider Un available Jelly Pinedo MD Primary Care Provider Un available Jelly Pinedo MD Unavailable Unavaila Chandrakant Trujillo MD Unavailable [phone] [facility] Pcp Primary Care Provider UnavailSandra Blanco MD Primary Care Provider Unavailelliot sanchez Encounter Details Date Type Department Care Team Description 04/29/2017 Quill Cleaning Machine Operator Report Medical Records [address] [place] [id number] Charles Sheridan MD Social History Tobacco Use [...] on filedocumented in this encounter Care Teams Creping Machine Operator Relationship Specialty Start Date End Date Jelly Pinedo MD PCP - General 01/09/02 04/02/19 Jelly Pinedo MD PCP - General 04/03/19 11/23/21 [facility], Pcp [address] [facility] [place] [address] PCP - General Internal Medicine 11/24/21 04/09/22 Sandra Montalvo MD [address] [place] [address] [place] [address] PCP - General Internal Medicine 04/10/22 Jelly Pinedo MD 04/03/19 06/05/21 Chandrakant Duran MD [address] [place] [address] [place] [address] Transformation Architect Cardiovascular Disease 06/06/21 documented as of this encounter
--- OUTSIDE RECORDS SUMMARY | 2025-01-07 02:20 | XMS_ITS | Encounter Summary ---
Author Organization [facility] Address [address] [place] [address] Care Team Providers Care Application Coordinator Name Role Phone Jelly Pinedo MD Primary Care Provider Un available Jelly Pinedo MD Primary Care Provider Un available Jelly Pinedo MD Unavailable Unavaila Chandrakant Trujillo MD Unavailable [phone] [facility], Pcp Primary Care Provider Sandra Granger MD Primary Care Provider Unavailelliot sanchez Encounter Details Date Type Department Care Team Description 04/07/2016 Refill Medicine/Pediatrics - [address] [address] Jami Castillo PA-C Social History Tobacco Use [...] encounter Miscellaneous Notes * Telephone Encounter - Katelyn Nelson M.A. - 04/10/2016 9:55 AM EST Last ov 02/09/16 No csc uses prn, last refill 09/13/15 #30 No results found for this basename: urineoxycod, URBENZO, URAMPHETAMIN, URMARIJUANA, UROPIATES, URBARBITUATE, URCOCAINE, LHYDROCO, LHM, URINEETOH, METHADONE, HYDROCODONE * Telephone Encounter - Katelyn Nelson M.A. - 04/10/2016 9:55 AM ESTFrom: Jelly Dover To: Jami Castillo PA-C Sent: 04/07/2016 8:18 PM EST Subject: Medication Renewal Request Original authorizing provider: CARLENE Singh would like a refill of the following medications: lorazepam (ATIVAN) 0.5 MG tablet [Jami Castillo PA-C] Preferred pharmacy: [address] - [address] [facility] Comment: documented in this encounter Plan of Treatment Not on file documented as of this encounter Visit Diagnoses Not on filedocumented in this encounter Care Teams Application Coordinator Relationship Specialty Start Date End Date Jelly Pinedo MD PCP - General 01/09/02 04/02/19 Jelly Pinedo MD PCP - General 04/03/19 11/23/21 [facility] Pcp [address] [place] [address] [place] [address] PCP - General Internal Medicine 11/24/21 04/09/22 Sandra Montalvo MD [address] [place] [address] [place] [address] PCP - General Internal Medicine 04/10/22 Jelly Pinedo MD 04/03/19 06/05/21 Chandrakant Duran MD [address] [place] [address] [place] [address] Pull Out Operator Cardiovascular Disease 06/06/21 documented as of this encounter
--- OUTSIDE RECORDS SUMMARY | 2025-01-07 02:20 | XMS_ITS | Encounter Summary ---
Author Organization [facility] Address [address] [place] [address] Care Team Providers Care Nautical Instrument Mechanic Name Role Phone Jelly Pinedo MD Primary Care Provider Un available Jelly Pinedo MD Primary Care Provider Un available Jelly Pinedo MD Unavailable Unavaila Chandrakant Trujillo MD Unavailable [phone] [facility], Pcp Primary Care Provider UnavailSandra Blanco MD Primary Care Provider Unavailelliot sanchez Encounter Details Date Type Department Care Team Description 04/26/2016 Machine Driller Report Medical Records [address] [place] [id number] Eric Hopper Social History Tobacco Use Types [...] on filedocumented in this encounter Care Teams Nautical Instrument Mechanic Relationship Specialty Start Date End Date Jelly Pinedo MD PCP - General 01/09/02 04/02/19 Jelly Pinedo MD PCP - General 04/03/19 11/23/21 [facility], Pcp [address] [place] [address] PCP - General Internal Medicine 11/24/21 04/09/22 Sandra Montalvo MD [address] [place] [address] [place] [address] PCP - General Internal Medicine 04/10/22 Jelly Pinedo MD 04/03/19 06/05/21 Chandrakant Duran MD [address] [place] [address] [place] [address] Public Health Engineer Cardiovascular Disease 06/06/21 documented as of this encounter
--- OUTSIDE RECORDS SUMMARY | 2025-01-07 02:20 | XMS_ITS | Patient Health Record ---
Author Organization [facility] Address [address] [facility] [address] [facility] [address] [place] [address] Care Team Providers Care Electrician'S Helper Name Role Phone THONY DORADO MD Primary Care Provider Zonia Thomas [phone] Allergies Allergen (clinical drug ingredient) Drug/Non Drug [...] Status Risk Notes Problem Postmenopausal atrophic vaginitis (23570412) Postmenopausal atrophic vaginitis (N95.2) Active confirmed Problem Disorder of breast (81322154) Disorder of breast, unspecified (N64.9) Active confirmed Problem Menopause (642749788) Menopausal and female climacteric states (N95.1) Active confirmed Problem Postmenopausal atrophic vaginitis (23906444) Postmenopausal atrophic vaginitis (627.3) Active confirmed Diag Problem Gynecological examination normal (237830780873299) Routine gynecological examination (V72.31) Active confirmed Problem Screening for malignant neoplasm of colon (508181547) Special screening for malignant neoplasms, colon (V76.51) Active confirmed Major Vital Signs Temperature 97.3 degrees Fahrenheit 09/08/2024 Blood pressure diastolic 82 mm Hg 09/08/2024 Height 66 in 09/08/2024 Blood pressure systolic 122 mm Hg 09/08/2024 Weight 165 lbs 09/08/2024 BMI 26.63 kg/m2 09/08/2024 Encounters Encounter Location Date Provider Diagnosis [address] [place] [address] 09/08/2024 Zonia Wall Encounter for gynecological examination [...] Provider Name:Zonia parker, 09/16/2025 08:20:00 AM, [address], [address], [place], [address], Insurance Providers Payer Name Payer Address Payer Phone Subscriber Number Group Number Insured Name Patient Relationship to Insured Coverage Start Date Coverage End Date MEDICARE [address] [place], [place] [id number] [phone] [id number] JOSÉ ANTONIO HUI Self - patient is the insured 4 MEDEX [address] [place] [address] [phone] [id number] JOSÉ ANTONIO HUI Self - patient is the insured 4 Medical (General) History Medical History History ICD Code Menopausal and female climacteric states N95.1 Postmenopausal atrophic vaginitis N95.2 Disorder of breast, unspecified N64.9 Hormone replacement therapy Z79.890 Other signs and symptoms in breast N64.5 9 Palpitations R00.2 Surgical History Surgery Date(Month/Year) Colonoscopy Dialation & Curettage Right Shoulder Surgery Tonsillectomy/Adenoidectomy [place] Teeth Extraction Hospitalization History Reason Date(Month/Year) See Surgical Hx 2 Vaginal Deliveries
--- NOTE | 2025-02-01 13:48 | P.CONAN_ITS ---
Documented by User: Elizabeth Jay NP 02/01/25 13:59 HPI - Anesthesia Eval Consult details Narrative: 64 yr old female for colonoscopy CAD: follows PVC (Dr. Duran): -Echo 07/2024 showed normal left ventricular systolic function, LVEF 55-60%, normal LV regional wall motion, mitral valve insufficiency, mild tricuspid valve insufficiency, normal pulmonary artery systolic pressures. -Cardiac CT 09/22/24 showed left main - normal, LAD mild calcified plaque burden in the proximal LAD causing 20-30% stenosis, circumflex normal, RCA- small calcified plaque in the proximal RCA causing no stenosis; no evidence of hemodynamically significant CAD. -Considered low cardiac risk for above procedure. FREDDY: ?unsure of CPAP status Anesthesia Pre-Procedure Meds Is the patient on any of the following meds?: GLP1/DPP4 PMFSH Active Problems Active Problems: All Active Problems (Updated 07/07/24 @ 13:51 by Sandra Dodd MD) Hypertension (Acute) Overweight (Acute) FREDDY (obstructive sleep apnea) (Acute) Screening for metabolic disorder (Acute) Screening, deficiency anemia, iron (Acute) History of cardiac arrhythmia (Acute) CAD (coronary artery disease) (Acute) Screening for colon cancer (Acute) Past Medical History Medical History FREDDY (obstructive sleep apnea) HLD (hyperlipidemia) Family History Family History Brother Substance abuse Surgical History Surgical History History of tonsillectomy and adenoidectomy History of arthroscopy of left shoulder (~1994) Hx of colonoscopy H/O dilation and curettage (~1986) Social History Social History Household Members: Spouse Housing: House Are you a primary long term care social worker to a significant other at home: No Do you presently have visiting nurse or other home services: No Patient Tobacco Use Status: Former Tobacco user Tobacco use type: Cigarette Years Smoked: 7 Smoked in Last 30 Days: No e-Cigarette/Vaping Use: Never Used Second Hand Smoke Exposure: No Use of substances other than those prescribed or required for medical reasons: Yes Substance Use Type Other:: gummies for sleep Substance Use Frequency: Occasionally Have you been hit, kicked, punched, or otherwise hurt by someone within the past year? 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 Current occupational exposures/hazards: No Cognitive needs: No Hearing needs: Yes (bilateral hearing aid) Vision needs: Yes (glasses/contacts) Meds Allergies Allergy/AdvReac Type Severity Reaction Status Date / Time Sulfa (Sulfonamide Allergy Mild mouth Verified 07/07/24 13:14 Antibiotics) swelling Home Medications ?Medication ?Instructions ?Recorded ?Confirmed ?Last Taken ?Type aspirin 81 mg tablet,delayed 81 mg PO DAILY 07/07/24 1 04/05/24 01/29/25 History release calcium carbonate 500 mg PO DAILY 07/07/24 Unknown History cetirizine 10 mg capsule (Zyrtec) 10 mg PO DAILY PRN A llergy Symptoms 07/07/24 02/02/25 Unknown History milagros c 1000 1,000 mg PO DAILY 07/07/24 1 04/05/24 Unknown History evolocumab 140 mg/mL subcutaneous 140 mg subcut Q2W 02/02/25 Unknown History syringe (Repatha Syringe) fish oil-dha-epa PO DAILY 07/07/24 09/08/24 U nknown History glucasamine with MSM PO 07/07/24 09/08/24 Unknown History loratadine 10 mg tablet (Claritin) 10 mg PO DAILY 06/1902/02/25 Unknown History metoprolol succinate 25 mg 25 mg PO DAILY 07/07/24 Unknown History tablet,extended release 24 hr probiotics PO 07/07/24 09/08/24 Unknown History Exam Narrative Narrative: ECHO 07/2024 ? Left ventricle cavity size is normal. Left ventricular systolic function is in the normal range with an ejection fraction of 55-60%. ? No regional LV wall motion abnormalities noted. ? Right ventricle cavity is normal. Right ventricular systolic function is normal. ? Mitral?Valve: There is mild regurgitation. ? Tricuspid?Valve: There is mild regurgitation. The right ventricular systolic pressure is normal. The RVSP is estimated at 23 mmHg. EKG 06/2024 Component Ref Range & Units07/14/24 0827Ventricular Rate ECG [id number] Rate [id number]-C Interval [id number] Duration ry28X-K Interval [id number] ri152D Wave [place] [id number] [place] degrees-44T [place] degrees-48ECG Interpretation Sinus bradycardia Left axis deviation Nonspecific T wave abnormality Abnormal ECG No previous ECGs available Confirmed by DESTINEY SUTHERLAND ([id number]) on 07/14/2024 8:34:26 AM Documented by User: Ly Marie MD 02/04/25 09:41 [facility] Past Medical History Medical History FREDDY (obstructive sleep apnea) HLD (hyperlipidemia) Family History Family History Brother Substance abuse Family history of problems with anesthesia: No Surgical History Surgical History History of tonsillectomy and adenoidectomy History of arthroscopy of left shoulder (~1994) Hx of colonoscopy H/O dilation and curettage (~1986) History of Problems with Anesthesia: No Social History Social History Household Members: Spouse Housing: House Are you a primary long term care social worker to a significant other at home: No Do you presently have visiting nurse or other home services: No Patient Tobacco Use Status: Former Tobacco user Tobacco use type: Cigarette Years Smoked: 7 Smoked in Last 30 Days: No e-Cigarette/Vaping Use: Never Used Second Hand Smoke Exposure: No Use of substances other than those prescribed or required for medical reasons: Yes Substance Use Type Other:: gummies for sleep Substance Use Frequency: Occasionally Have you been hit, kicked, punched, or otherwise hurt by someone within the past year? 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 Current occupational exposures/hazards: No Cognitive needs: No Hearing needs: Yes (bilateral hearing aid) Vision needs: Yes (glasses/contacts) Meds Allergies Allergy/AdvReac Type Severity Reaction Status Date / Time Sulfa (Sulfonamide Allergy Mild mouth Verified 07/07/24 13:14 Antibiotics) swelling Home Medications ?Medication ?Instructions ?Recorded ?Confirmed ?Last Taken ?Type aspirin 81 mg tablet,delayed 81 mg PO DAILY 07/07/24 1 04/05/24 01/29/25 History release calcium carbonate 500 mg PO DAILY 07/07/24 Unknown History cetirizine 10 mg capsule (Zyrtec) 10 mg PO DAILY PRN A llergy Symptoms 07/07/24 02/02/25 Unknown History milagros c 1000 1,000 mg PO DAILY 07/07/24 1 04/05/24 Unknown History evolocumab 140 mg/mL subcutaneous 140 mg subcut Q2W 02/02/25 Unknown History syringe (Repatha Syringe) fish oil-dha-epa PO DAILY 07/07/24 09/08/24 U nknown History glucasamine with MSM PO 07/07/24 09/08/24 Unknown History loratadine 10 mg tablet (Claritin) 10 mg PO DAILY 06/1902/02/25 Unknown History metoprolol succinate 25 mg 25 mg PO DAILY 07/07/24 Unknown History tablet,extended release 24 hr probiotics PO 07/07/24 09/08/24 Unknown History Exam Airway Mallampati Class: III TM Dist: <=3cm Neck ROM: Full Heart: rrr Lungs: cta Assessment and Plan Assessment Anesthesia Assessment: Anesthesia Plan Discussed and Chart Reviewed Final Anesthetic Review Family History of Problems with Anesthesia: No History of Problems with Anesthesia: No NPO: Yes ASA Class: III Final Preanesthetic Review: No Changes in Pt Med Stat, Meds/Allgs Chart Reviewed, Consent Obtained/Reviewed and Anes Risks/Benef Reviewed Patient Risk: Intermediate Procedure Risk: Intermediate Anesthetic Plan Anesthetic Plan: GA and Agree w/ Assess. and Plan Disposition: Standard PACU
[2025-02-02 15:10] VITALS: BMI 28.3
[2025-02-04 09:37] VITALS: BMI 26.3
[2025-02-04 09:42] VITALS: BP 144/69; PULSE 68; RESP 16; TEMP 36.8; O2SAT 98
[2025-02-04] MEDS: Lactated Ringers 1,000 ML 100 ML IVCONT (09:57)
--- NOTE | 2025-02-04 10:19 | MHC.SHP ---
Pre-Procedural Eval Section A - 24 Hr Update-Section A only Date of Service: 02/04/25 Section B - Complete if H&P > 30 days Chief Complaint: screening Details of Present Illness: H/O dilation and curettage History of arthroplasty of left shoulder Family History Brother Substance abuse Present Medications: see Short Stay Collaborative assessment Allergies: Allergies Allergy/AdvReac Type Severity Reaction Status Date / Time Sulfa (Sulfonamide Allergy Mild mouth Verified 07/07/24 13:14 Antibiotics) swelling Review of Systems Review of Systems Comment: Ten point ROS negative Exam Exam Comment: Gen appear: No acute distress HEENT: no icterus Chest: No overt resp distress Abd: soft, nontender, nondistended Psych: Stable affect, answering questions appropriately Neuro: A/Ox3 noted to move all extremities spontaneously Ext: no peripheral edema Plan Diagnosis/Plan: Unchanged I have reviewed the history and physical and performed a pertinent physical examination on my patient. No changes have occurred unless specified. Time Spent With Patient Time: Total time managing care of this patient today ____ minutes.
[2025-02-04 10:45] VITALS: BP 109/60; PULSE 60; RESP 12; TEMP 36.3
--- NOTE | 2025-02-04 10:45 | P.OPN-COLO_ITS ---
Colonoscopy Operative Note Operative Note Date of Service: 02/04/25 Narrative: Procedure: Colonoscopy Indication: Screening Endoscopist: Dottie Ronquillo MD Anesthesia Provider: Jose Sutton CRNA Anesthesia type: MAC Instrument: Olympus [id number]-[id number] Consent: Indication, risks vs benefits, and alternatives were discussed with the patient who gave written informed consent to proceed. EKG, pulse, pulse oximetry and blood pressure were monitored throughout the procedure. Please see anesthesia flowsheet. Procedure: The patient was brought to the procedure room and placed in the left lateral decubitus position. IV medications were administered by the anesthesia provider in attendance. A digital rectal exam was performed which was normal. A distal attachment cap was affixed to the tip of the colonoscope which was then inserted through the anus and advanced through the colon to the cecum at 75 cm,and terminal ileum. Appendiceal orifice and ileocecal valve were identified. Mucosa was carefully examined under high definition white light as the instrument was slowly withdrawn in a retrograde panoramic fashion. Retroflexion was performed in rectum. The procedure was not difficult. There were no immediate obvious complications. The quality of the prep was BBPS: 3+2+3 = adequate Withdrawal time 8 minutes. Limitations: No limitations. Findings: Mucosa: Normal to cecum and terminal ileum. Protruding lesions: * 1 sessile polyp of size 8 mm in sigmoid colon. Cold snare polypectomy was performed. The polyp was completely removed and retrieved. * Medium internal hemorrhoids without stigmata of recent bleeding. Excvated lesions: * Mild diverticulosis of sigmoid colon. Impression: 1. Normal colon and terminal ileum mucosa 2. Total of 1 polyp removed 3. Diverticulosis 4. Internal hemorrhoids Recommendations: - Follow path results. - Repeat colonoscopy in 7-10 years if polyp is an adenoma.
[2025-02-04 10:54] VITALS: BP 104/64; PULSE 64; RESP 14; TEMP 36.3; O2SAT 98
== END 2025-02-04 11:41 | disposition home or self-care (01) ==
PROVIDERS: PCP Internal Medicine; Visit Provider Internal Medicine
PROC: 0DJD8ZZ Inspection of Lower Intestinal Tract, Via Natural or Artificial Opening Endoscopic (ICD-10-PCS; CPT 45378; principal; 2025-02-04 11:00)
DX: Z12.11 Encounter for screening for malignant neoplasm of colon (principal); K64.8 Other hemorrhoids; K57.30 Diverticulosis of large intestine without perforation or abscess without bleeding; K63.5 Polyp of colon
CPT/HCPCS: 45385; 88305; J2003; J2704

== ENCOUNTER → 2025-02-04 09:22 | Outpatient (BNV) | payer MEDICARE, SELFPAY | PROVIDERS: PCP Internal Medicine; Visit Provider Internal Medicine | DX: Z12.11 Encounter for screening for malignant neoplasm of colon (principal); K63.5 Polyp of colon; K57.30 Diverticulosis of large intestine without perforation or abscess without bleeding; K64.8 Other hemorrhoids | CPT/HCPCS: 45385 ==